=== PATIENT | female | born 1995 | race American Indian/Alaskan Native ===

== ENCOUNTER 2017-01-11 09:22 | Emergency (ER) | payer MEDICAID ==
[2017-01-11] MEDS ORDERED: D5NS 0.2% 1,000 ML IV SCH (10:00)
[2017-01-11 10:06] LABS: Basophils % (Auto) 0.7 % (0.0-1.8); Eosinophils % (Auto) 0.4 % (0.0-4.3); Hematocrit 24.4 % (30.3-42.9); Hemoglobin 8.6 gm/dl (10.1-14.3); Mean Corpuscular HGB Conc 35 % (30-34); Mean Corpuscular Hemoglobin 32 pg (28-32); Mean Corpuscular Volume 91 fl (79-97); Platelet Count 603 K/mm3 (140-440); Reticulocyte % 11.82 % (0.78-2.58); White Blood Count 12.8 K/mm3 (4.5-11.0)
[2017-01-11 10:07] LABS: Red Cell Distribution Width 23.6 % (13.2-15.2)
[2017-01-11] MEDS ORDERED: DILAUDID IV ONE ×3 (12:12→14:11)
[2017-01-11] MEDS ORDERED: BENADRYL IV ONE ×2 (12:13→13:10)
[2017-01-11 12:17] VITALS: BP 119/67
--- NOTE | 2017-01-11 12:23 | Emergency Department Report ---
HPI - General Chief Complaint: Sickle Cell Crisis Time Seen by Provider: 01/11/17 11:31 - HPI HPI: This is a 21 year-old female who presents to the emergency department from home with complaint of "sickle cell pain crisis." Patient says that she has pain in the upper chest and upper back has been going on since yesterday. She denies any fever, nausea, vomiting, shortness of breath or diaphoresis. She has been taking Percocet and her folic acid without any relief. Her primary care physician/investigator cash shortage is Dr. Abida Blackwell. No recent travel or sick contacts at home. ED Past Medical Hx - Past Medical History Previous Medical History?: Yes Hx Sickle Cell Disease: Yes - Surgical History Past Surgical History?: Yes Hx Cholecystectomy: Yes - Social History Smoking Status: Never Smoker Substance Use Type: Prescribed - Medications Home Medications: Home Medications Medication Instructions Recorded Confirmed Last Taken Type Folic Acid [Folvite] 1 mg PO QDAY 05/25/14 05/25/14 05/25/14 History Oxycodone HCl/Acetaminophen 10 mg PO DAILY 01/11/17 01/11/17 Unknown History [OxyCODONE-Acetaminophen 10-325] oxyCODONE /ACETAMINOPHEN [Percocet 1 tab PO Q6HR PRN #8 tablet 01/11/17 Unknown Rx 5/325] ED Review of Systems ROS: Stated complaint: SICKLE CELL PAIN Other details as noted in HPI Comment: All other systems reviewed and negative Constitutional: denies: chills, fever Eyes: denies: eye pain, eye discharge, vision change ENT: denies: ear pain, throat pain Respiratory: denies: cough, shortness of breath, wheezing Cardiovascular: chest pain. denies: as per HPI, palpitations Gastrointestinal: denies: abdominal pain, nausea, diarrhea Genitourinary: denies: urgency, dysuria, discharge Musculoskeletal: back pain. denies: arthralgia Skin: denies: rash, lesions Neurological: denies: headache, weakness, paresthesias Physical Exam - Physical Exam Vital Signs: Vital Signs 01/11/17 01/11/17 09:40 12:17 Temperature 98.5 F 98.4 F Pulse Rate 99 H 92 H Respiratory 16 18 Rate Blood Pressure 114/71 Blood Pressure 119/67 [Left] O2 Sat by Pulse 98 96 Oximetry Physical Exam: GENERAL: The patient is well-developed well-nourished. ENT: Normocephalic. Atraumatic. Patient has moist mucous membranes. EYES: Extraocular motions are intact. Pupils equal reactive to light bilaterally. No nystagmus. NECK: Supple. Trachea is mid line. CHEST/LUNGS: Clear to auscultation. There is no respiratory distress noted. There is some reproducible chest pain to palpation of the chest wall. HEART/CARDIOVASCULAR: Regular rhythm. Regular rate. There is no gallop rub or murmur. ABDOMEN: Abdomen is soft, nontender. Patient has normal bowel sounds. There is no abdominal distention. SKIN: Skin is warm and dry. NEURO: The patient is awake, alert, and oriented. The patient is cooperative. The patient has no sensory or motor deficits. The patient has normal speech. MUSCULOSKELETAL: There is no tenderness or deformity. There is no limitation range of motion. There is no evidence of acute injury. Muscle strength 5 out of 5 upper and lower extremity bilaterally. Cap refill less than 2 seconds. BACK: No midline thoracic or lumbar tenderness to palpation or deformity. There is some reproducible upper thoracic paraspinal tenderness to palpation. ED Course Vital Signs 01/11/17 01/11/17 09:40 12:17 Temperature 98.5 F 98.4 F Pulse Rate 99 H 92 H Respiratory 16 18 Rate Blood Pressure 114/71 Blood Pressure 119/67 [Left] O2 Sat by Pulse 98 96 Oximetry ED Medical Decision Making - Lab Data Result diagrams: 01/11/17 09:51 01/11/17 13:00 - Radiology Data Radiology results: image reviewed interpreted by me: Chest x-ray does not show any pleural effusion, obvious signs of pneumonia or any pneumothorax. No acute process noted. - Medical Decision Making 21-year-old female presents with what she believes is a sickle cell pain crisis. She has upper chest and upper back pain that is typical for her pain crisis. Her labs show some anemia but it is pretty consistent with previous visits. She has elevated reticulocyte count but it is improved compared to previous visit. Otherwise she does not have any significant abnormalities in her labs including a negative troponin. Chest x-ray does not show any acute process. The patient would not allow an EKG be done. She was given a few doses of pain medication. She was reevaluated multiple times of her multiple hours and is improved. Vital signs stable throughout her ED course. She appears low suspicion for chest crisis as there is no infiltrate seen on chest x -ray and she is afebrile. She is low on the heart score criteria. The patient has been discharged home to follow up with her PCP, Dr. Rich, and has been encouraged to return to the ER with any worsening of her symptoms or any acute distress. - Differential Diagnosis costochondritis, pneumonia, chest crisis, pain crisis Critical Care Time: No Critical care attestation.: If time is entered above; I have spent that time in minutes in the direct care of this critically ill patient, excluding procedure time. ED Disposition Clinical Impression: Sickle cell anemia with crisis Disposition: - TO HOME OR SELFCARE Is pt being admited?: No Condition: Stable Instructions: Sickle Cell Crisis (ED) Additional Instructions: Please follow-up with Dr. Rich tomorrow or Sunday at the latest. Return to the emergency Department with any worsening of her symptoms or any acute distress. Prescriptions: oxyCODONE /ACETAMINOPHEN [Percocet 5/325] 1 tab PO Q6HR PRN #8 tablet PRN Reason: Pain Referrals: ARCADIO RICH DO [Staff Physician] - [place] Time of Disposition: 15:14
--- NOTE | 2017-01-11 13:05 | XRay Report ---
ROUTINE CHEST, TWO VIEWS: HISTORY: chest pain. The trachea, heart, mediastinal contour, and lung ball are unremarkable. There is moderate dextroscoliosis in the thoracic spine with compensatory levoscoliosis in the lumbar spine. IMPRESSION: Scoliosis.
[2017-01-11 13:33] LABS: Anion Gap 20 mmol/L; Blood Urea Nitrogen 6 mg/dL (7-17); Carbon Dioxide 24 mmol/L (22-30); Glucose 82 mg/dL (65-100); Potassium 4.2 mmol/L (3.6-5.0); Sodium 143 mmol/L (137-145)
== END 2017-01-11 15:39 | disposition home or self-care (01) ==
LOC: ED 09:22
DX: D57.00 Hb-SS disease with crisis, unspecified (principal)
CPT/HCPCS: 36415; 71020; 80048; 84484; 85025; 85045; 96361; 96374; 96375; 96376; 99284; J1170; J1200

== ENCOUNTER 2017-04-02 10:26 | Emergency (ER) | payer MEDICAID ==
--- NOTE | 2017-04-02 12:52 | Emergency Department Report ---
Chief Complaint: Sickle Cell Crisis Stated Complaint: SICKLECELL CRISIS - HPI History of Present Illness: 21 year old female presents to ED with sickle cell pain and chest pain x2 days. patient states she usually takes oxycodone and folic acid. patient is stable, neurologiclly intact and in no acute distress. - ROS Review of Systems: see HPI - Exam Vital Signs: Vital Signs 04/02/17 12:04 Temperature 99.2 F Pulse Rate 100 H Respiratory 20 Rate Blood Pressure 123/70 O2 Sat by Pulse 99 Oximetry Physical Exam: General: no acute distress Cardiac: normal heart rate and rhythm Lungs: normal sounds bilaterally MSE screening note: Focused history and physical exam performed. Due to findings the following was ordered: Labs urine CXR EKG ED Medical Decision Making - Radiology Data Radiology results: pending - Medical Decision Making patient is stable, neurologically intact and in no acute distress. ED Disposition for MSE Condition: Stable
[2017-04-02] MEDS ORDERED: D5NS 0.2% 1,000 ML IV SCH (13:00)
[2017-04-02 13:19] LABS: Basophils % (Auto) 0.9 % (0.0-1.8); Eosinophils % (Auto) 0.9 % (0.0-4.3); Hemoglobin 9.1 gm/dl (10.1-14.3); Reticulocyte % 6.63 % (0.78-2.58); White Blood Count 6.6 K/mm3 (4.5-11.0)
[2017-04-02 13:29] LABS: Mean Corpuscular HGB Conc 36 % (30-34); Mean Corpuscular Hemoglobin 33 pg (28-32); Mean Corpuscular Volume 93 fl (79-97); Platelet Count 478 K/mm3 (140-440); Red Cell Distribution Width 19.6 % (13.2-15.2)
[2017-04-02 13:30] LABS: INR 1.18 (0.87-1.13)
[2017-04-02 13:31] LABS: Partial Thromboplastin Time 28.7 Sec. (24.2-36.6)
[2017-04-02 13:41] LABS: Anion Gap 18 mmol/L; BUN/Creatinine Ratio 20; Blood Urea Nitrogen 4 mg/dL (7-17); Calcium 8.8 mg/dL (8.4-10.2); Carbon Dioxide 22 mmol/L (22-30); Glucose 93 mg/dL (65-100); Potassium 3.4 mmol/L (3.6-5.0); Sodium 143 mmol/L (137-145)
[2017-04-02 13:42] LABS: Alanine Aminotransferase 18 units/L (7-56); Albumin 4.4 g/dL (3.9-5); Albumin/Globulin Ratio 1.3 %; Alkaline Phosphatase 67 units/L (35-129); Bilirubin,Direct 0.2 mg/dL (0-0.2); Bilirubin,Indirect 4.4 mg/dL; Total Protein 7.7 g/dL (6.3-8.2)
--- NOTE | 2017-04-02 14:20 | XRay Report ---
ROUTINE CHEST, TWO VIEWS: HISTORY: chest pain. The trachea, heart, mediastinal contour, lung ball and bony thorax are unremarkable. Scoliosis is noted. IMPRESSION: No acute cardiopulmonary process. Scoliosis.
[2017-04-02] MEDS ORDERED: NACL 0.9% 1000 ML 1,000 ML IV ONE (23:01)
[2017-04-02] MEDS ORDERED: BENADRYL IV ONE (23:02)
[2017-04-02] MEDS ORDERED: DILAUDID IV ONE (23:02)
--- NOTE | 2017-04-02 23:04 | Emergency Department Report ---
ED General Adult HPI - General Chief complaint: Sickle Cell Crisis Stated complaint: SICKLECELL CRISIS Time Seen by Provider: 04/02/17 21:54 Source: patient Mode of arrival: Ambulatory Limitations: No Limitations - History of Present Illness Initial comments: 21-year-old female known to have sickle cell disease presents with complaints of pain in both upper and lower limbs and chest pain since last night. Chest pain radiates to her back. No nausea no vomiting no diarrhea. Patient is on folic acid and oxycodone. She did not take her oxycodone on folic acids today. She has never had extreme transfusion before. She has had routine blood transfusions in the past. -: Gradual, Last night (progressively getting worse) Location: chest, upper extremity (both upper limbs), lower extremity (both lower limbs) Radiation: back (chest pain. radiates to her back) Severity scale (0 -10): 0 Quality: aching Consistency: intermittent Improves with: none Worsens with: none Associated Symptoms: chest pain, cough (dry cough), loss of appetite, malaise, shortness of breath, weakness. denies: diaphoresis, fever/chills, headaches, nausea/vomiting, rash, seizure, syncope Treatments Prior to Arrival: none - Related Data Home Medications Medication Instructions Recorded Confirmed Last Taken Folic Acid [Folvite] 1 mg PO QDAY 05/25/14 05/25/14 05/25/14 Oxycodone HCl/Acetaminophen 10 mg PO DAILY 01/11/17 01/11/17 Unknown [OxyCODONE-Acetaminophen 10-325] Previous Rx's Medication Instructions Recorded Last Taken Type oxyCODONE /ACETAMINOPHEN [Percocet 1 tab PO Q6HR PRN #8 tablet 01/11/17 Unknown Rx 5/325] Allergies Allergy/AdvReac Type Severity Reaction Status Date / Time No Known Allergies Allergy Verified 01/11/17 09:47 ED Review of Systems ROS: Stated complaint: SICKLECELL CRISIS Other details as noted in HPI Comment: All other systems reviewed and negative Constitutional: malaise, weakness. denies: chills, diaphoresis, fever Eyes: denies: eye pain, eye discharge, vision change ENT: denies: throat pain, dental pain, hearing loss, epistaxis Respiratory: see HPI, cough, shortness of breath. denies: SOB with exertion, SOB at rest, wheezing Cardiovascular: chest pain. denies: palpitations, dyspnea on exertion, edema, syncope, paroxysmal nocturnal dyspnea Endocrine: no symptoms reported Gastrointestinal: denies: abdominal pain, nausea, vomiting, diarrhea, constipation, hematemesis Genitourinary: denies: dysuria, frequency, hematuria, discharge Musculoskeletal: as per HPI, myalgia, other (pain in both upper and lower limbs) Skin: denies: lesions, change in color, change in hair/nails, pruritus Neurological: weakness. denies: headache, numbness, paresthesias ED Past Medical Hx - Past Medical History Previous Medical History?: Yes Hx Sickle Cell Disease: Yes - Surgical History Past Surgical History?: Yes Hx Cholecystectomy: Yes - Social History Smoking Status: Former Smoker Substance Use Type: Prescribed - Medications Home Medications: Home Medications Medication Instructions Recorded Confirmed Last Taken Type Folic Acid [Folvite] 1 mg PO QDAY 05/25/14 05/25/14 05/25/14 History Oxycodone HCl/Acetaminophen 10 mg PO DAILY 01/11/17 01/11/17 Unknown History [OxyCODONE-Acetaminophen 10-325] oxyCODONE /ACETAMINOPHEN [Percocet 1 tab PO Q6HR PRN #8 tablet 01/11/17 Unknown Rx 5/325] ED Physical Exam - General Limitations: No Limitations General appearance: alert, in distress ([id number] distress) - Head Head exam: Present: atraumatic, normocephalic - Eye Eye exam: Present: normal appearance, PERRL, EOMI, scleral icterus. Absent: conjunctival injection, nystagmus - ENT ENT exam: Present: normal exam, mucous membranes moist, TM's normal bilaterally - Neck Neck exam: Present: normal inspection, full ROM. Absent: tenderness, meningismus, lymphadenopathy - Respiratory Respiratory exam: Present: normal lung sounds bilaterally, chest wall tenderness. Absent: respiratory distress, wheezes, rales, rhonchi, accessory muscle use, decreased breath sounds, prolonged expiratory - Cardiovascular Cardiovascular Exam: Present: regular rate, normal rhythm, normal heart sounds. Absent: bradycardia, tachycardia, systolic murmur, diastolic murmur - GI/Abdominal GI/Abdominal exam: Present: soft, normal bowel sounds. Absent: distended, tenderness, guarding, rebound, hyperactive bowel sounds, hypoactive bowel sounds , organomegaly, mass - Rectal Rectal exam: Present: deferred - Extremities Exam Extremities exam: Present: normal inspection, full ROM, tenderness, normal capillary refill. Absent: pedal edema, joint swelling, calf tenderness - Back Exam Back exam: Present: normal inspection, full ROM. Absent: tenderness, CVA tenderness (R), CVA tenderness (L), muscle spasm, paraspinal tenderness - Neurological Exam Neurological exam: Present: alert, oriented X3, CN II-XII intact, motor sensory deficit ED Course Vital Signs 04/02/17 04/02/17 04/02/17 12:04 17:55 21:50 Temperature 99.2 F 98.6 F Pulse Rate 100 H 100 H Respiratory 20 16 18 Rate Blood Pressure 123/70 Blood Pressure 130/71 [Left] O2 Sat by Pulse 99 100 99 Oximetry 04/02/17 23:45 Temperature Pulse Rate 86 Respiratory Rate Blood Pressure Blood Pressure [Left] O2 Sat by Pulse Oximetry ED Medical Decision Making - Lab Data Result diagrams: 04/02/17 12:58 04/02/17 12:58 Lab Results 04/02/17 04/02/17 04/02/17 Range/Units 12:58 12:58 12:58 WBC 6.6 (4.5-11.0) K/mm3 RBC 2.80 L (3.65-5.03) M/mm3 Hgb 9.1 L (10.1-14.3) gm/dl Hct 26.0 L (30.3-42.9) % MCV 93 (79-97) fl MCH 33 H (28-32) pg MCHC 36 H (30-34) % RDW 19.6 H (13.2-15.2) % Plt Count 478 H (140-440) K/mm3 Lymph % (Auto) 36.4 H (13.4-35.0) % [place] % (Auto) 14.5 H (0.0-7.3) % Eos % (Auto) 0.9 (0.0-4.3) % Baso % (Auto) 0.9 (0.0-1.8) % Lymph # 2.4 (1.2-5.4) K/mm3 [place] # 1.0 H (0.0-0.8) K/mm3 Eos # 0.1 (0.0-0.4) K/mm3 Baso # 0.1 (0.0-0.1) K/mm3 Seg Neutrophils % 47.3 (40.0-70.0) % Seg Neutrophils # 3.1 (1.8-7.7) K/mm3 Percent Retic 6.63 H (0.78-2.58) % PT 15.6 H (12.2-14.9) Sec. INR 1.18 H (0.87-1.13) APTT 28.7 (24.2-36.6) Sec. Sodium 143 (137-145) mmol/L Potassium 3.4 L (3.6-5.0) mmol/L Chloride 106.0 (98-107) mmol/L Carbon Dioxide 22 (22-30) mmol/L Anion Gap 18 mmol/L BUN 4 L (7-17) mg/dL Creatinine < 0.2 L (0.7-1.2) mg/dL Estimated GFR > 60 ml/min BUN/Creatinine Ratio 20 % Glucose 93 (65-100) mg/dL Lactic Acid (0.7-2.0) mmol/L Calcium 8.8 (8.4-10.2) mg/dL Total Bilirubin (0.1-1.2) mg/dL Direct Bilirubin (0-0.2) mg/dL Indirect Bilirubin mg/dL AST (5-40) units/L ALT (7-56) units/L Alkaline Phosphatase (35-129) units/L Lactate Dehydrogenase (91-180) units/L Troponin T (0.00-0.029) ng/mL Total Protein (6.3-8.2) g/dL Albumin (3.9-5) g/dL Albumin/Globulin Ratio % HCG, Qual (Negative) 04/02/17 04/02/17 04/02/17 Range/Units 12:58 12:58 23:13 WBC (4.5-11.0) K/mm3 RBC (3.65-5.03) M/mm3 Hgb (10.1-14.3) gm/dl Hct (30.3-42.9) % MCV (79-97) fl MCH (28-32) pg MCHC (30-34) % RDW (13.2-15.2) % Plt Count (140-440) K/mm3 Lymph % (Auto) (13.4-35.0) % [place] % (Auto) (0.0-7.3) % Eos % (Auto) (0.0-4.3) % Baso % (Auto) (0.0-1.8) % Lymph # (1.2-5.4) K/mm3 [place] # (0.0-0.8) K/mm3 Eos # (0.0-0.4) K/mm3 Baso # (0.0-0.1) K/mm3 Seg Neutrophils % (40.0-70.0) % Seg Neutrophils # (1.8-7.7) K/mm3 Percent Retic (0.78-2.58) % PT (12.2-14.9) Sec. INR (0.87-1.13) APTT (24.2-36.6) Sec. Sodium (137-145) mmol/L Potassium (3.6-5.0) mmol/L Chloride (98-107) mmol/L Carbon Dioxide (22-30) mmol/L Anion Gap mmol/L BUN (7-17) mg/dL Creatinine (0.7-1.2) mg/dL Estimated GFR ml/min BUN/Creatinine Ratio % Glucose (65-100) mg/dL Lactic Acid 1.20 (0.7-2.0) mmol/L Calcium (8.4-10.2) mg/dL Total Bilirubin 4.60 H (0.1-1.2) mg/dL Direct Bilirubin 0.2 (0-0.2) mg/dL Indirect Bilirubin 4.4 mg/dL AST 25 (5-40) units/L ALT 18 (7-56) units/L Alkaline Phosphatase 67 (35-129) units/L Lactate Dehydrogenase (91-180) units/L Troponin T < 0.010 (0.00-0.029) ng/mL Total Protein 7.7 (6.3-8.2) g/dL Albumin 4.4 (3.9-5) g/dL Albumin/Globulin Ratio 1.3 % HCG, Qual Negative (Negative) 04/02/17 Range/Units 23:13 WBC (4.5-11.0) K/mm3 RBC (3.65-5.03) M/mm3 Hgb (10.1-14.3) gm/dl Hct (30.3-42.9) % MCV (79-97) fl MCH (28-32) pg MCHC (30-34) % RDW (13.2-15.2) % Plt Count (140-440) K/mm3 Lymph % (Auto) (13.4-35.0) % [place] % (Auto) (0.0-7.3) % Eos % (Auto) (0.0-4.3) % Baso % (Auto) (0.0-1.8) % Lymph # (1.2-5.4) K/mm3 [place] # (0.0-0.8) K/mm3 Eos # (0.0-0.4) K/mm3 Baso # (0.0-0.1) K/mm3 Seg Neutrophils % (40.0-70.0) % Seg Neutrophils # (1.8-7.7) K/mm3 Percent Retic (0.78-2.58) % PT (12.2-14.9) Sec. INR (0.87-1.13) APTT (24.2-36.6) Sec. Sodium (137-145) mmol/L Potassium (3.6-5.0) mmol/L Chloride (98-107) mmol/L Carbon Dioxide (22-30) mmol/L Anion Gap mmol/L BUN (7-17) mg/dL Creatinine (0.7-1.2) mg/dL Estimated GFR ml/min BUN/Creatinine Ratio % Glucose (65-100) mg/dL Lactic Acid (0.7-2.0) mmol/L Calcium (8.4-10.2) mg/dL Total Bilirubin (0.1-1.2) mg/dL Direct Bilirubin (0-0.2) mg/dL Indirect Bilirubin mg/dL AST (5-40) units/L ALT (7-56) units/L Alkaline Phosphatase (35-129) units/L Lactate Dehydrogenase 509 H (91-180) units/L Troponin T (0.00-0.029) ng/mL Total Protein (6.3-8.2) g/dL Albumin (3.9-5) g/dL Albumin/Globulin Ratio % HCG, Qual (Negative) - EKG Data -: EKG Interpreted by Me - EKG Data 04/03/17 02:06 Normal sinus rhythm, rate of 75 beats per minutes, normal axis T-wave inversion in lead 3, lead V2, 33, V4 and V5. Slightly prolonged QTc - Radiology Data Radiology results: report reviewed, image reviewed Critical Care Time: No Critical care attestation.: If time is entered above; I have spent that time in minutes in the direct care of this critically ill patient, excluding procedure time. ED Disposition Clinical Impression: Sickle-cell disease with vaso-occlusive pain Disposition: TO HOME OR SELFCARE Is pt being admited?: No Does the pt Need Aspirin: No Condition: Stable Instructions: Sickle Cell Crisis (ED) Additional Instructions: Follow up with your parking analyst in next 3 days. Return to ER if you problem gets worse Referrals: ARCADIO RICH DO [Primary Care Provider] - 3-5 Days Time of Disposition: 02:08
[2017-04-03] MEDS ORDERED: SUBLIMAZE IV ONE (00:53)
[2017-04-03 02:43] VITALS: BP 115/77
== END 2017-04-03 02:45 | disposition home or self-care (01) ==
LOC: ED 10:26
DX: D57.1 Sickle-cell disease without crisis (principal)
CPT/HCPCS: 36415; 71020; 80048; 80074; 82140; 83615; 84484; 84703; 85025; 85045; 85610; 85730; 93005; 93010; 96361; 96374; 96375; 99284; J1170; J1200; J3010; J7030

== ENCOUNTER 2017-11-14 13:53 | Inpatient (IN) | payer MEDICAID ==
[2017-11-14] MEDS ORDERED: SODIUM CHLORIDE FLUSH SYRINGE 10 ML IV PRN (13:59)
[2017-11-14 17:10] LABS: Basophils # (Auto) 0.1 K/mm3 (0.0-0.1); Basophils % (Auto) 0.6 % (0.0-1.8); Eosinophils % (Auto) 0.4 % (0.0-4.3); Hematocrit 21.6 % (30.3-42.9); Hemoglobin 7.5 gm/dl (10.1-14.3); Lymphocytes # (Auto) 2.4 K/mm3 (1.2-5.4); Mean Corpuscular HGB Conc 35 % (30-34); Mean Corpuscular Hemoglobin 34 pg (28-32); Mean Corpuscular Volume 97 fl (79-97); Monocytes # (Auto) 1.6 K/mm3 (0.0-0.8); Monocytes % (Auto) 14.1 % (0.0-7.3); Red Blood Count 2.24 M/mm3 (3.65-5.03); Red Cell Distribution Width 18.7 % (13.2-15.2)
[2017-11-14 17:11] LABS: Platelet Count 376 K/mm3 (140-440)
[2017-11-14 18:25] LABS: Alanine Aminotransferase 10 units/L (7-56); Albumin 4.2 g/dL (3.9-5); BUN/Creatinine Ratio 40; Blood Urea Nitrogen 8 mg/dL (7-17); Calcium 8.9 mg/dL (8.4-10.2); Hemolysis Index 34
[2017-11-14 18:26] LABS: Iron 140 ug/dL (37-170); Total Iron Binding Capacity 227 mcg/dL (250-450)
[2017-11-14] MEDS: HEPARIN SUB-Q SCH (20:31)
[2017-11-14] MEDS: DILAUDID IV PRN (20:32)
[2017-11-14] MEDS: BENADRYL IV PRN (20:34)
[2017-11-14] MEDS: D5NS 0.2% 1,000 ML IV SCH (20:39)
--- NOTE | 2017-11-14 21:32 | Consultation ---
History of Present Illness - Reason for Consult Consult date: 11/14/17 SCD/pain crisis/anemia. Requesting physician: RANDY ROBERTS - History of Present Illness Thank you for this consult, patient seen/sent from the office , for the reasons , of sxs management. Past History Social history: single, lives with family Medications and Allergies Allergies Allergy/AdvReac Type Severity Reaction Status Date / Time No Known Allergies Allergy Verified 01/11/17 09:47 Home Medications Medication Instructions Recorded Confirmed Last Taken Type Acetaminophen [Acetaminophen TAB] 650 mg PO Q4H PRN #30 tablet 06/20/17 Unknown Rx Folic Acid [Folvite] 1 mg PO QDAY #30 tablet 06/20/17 Unknown Rx Hydroxyurea [Hydrea] 500 mg PO DAILY #30 18 06/15/17 Unknown Rx Multivitamin Tab [Multiple Vitamin 1 each PO QDAY #30 tablet 06/20/17 Unknown Rx TAB (Theragran)] Oseltamivir [Tamiflu] 75 mg PO BID #1 day 06/20/17 Unknown Rx Sennosides Tab [Senokot] 17.2 mg PO QHS #30 tablet 06/20/17 Unknown Rx Venlafaxine [Effexor 37.5mg tab] 37.5 mg PO DAILY #30 day 06/20/17 06/15/17 Unknown Rx oxyCODONE /ACETAMINOPHEN [Percocet 1 tab PO Q6H PRN #20 tablet 06/20/17 Unknown Rx 5/325 mg] Active Meds: Active Medications Diphenhydramine HCl (Benadryl) 12.5 mg IV Q3H PRN PRN Reason: Itching Last Admin: 11/14/17 20:34 Dose: 12.5 mg Heparin Sodium (Porcine) (Heparin) 5,000 unit SUB-Q DAILY BONIFACIO Last Admin: 11/14/17 20:31 Dose: 5,000 unit Hydromorphone HCl (Dilaudid) 2 mg IV Q3H PRN PRN Reason: Pain, Moderate (4-6) Last Admin: 11/14/17 20:32 Dose: 2 mg Dextrose/Sodium Chloride (D5ns 0.2%) 1,000 mls @ 175 mls/hr IV DIRECT BONIFACIO Last Admin: 11/14/17 20:39 Dose: 175 mls/hr Sodium Chloride (Sodium Chloride Flush Syringe 10 Ml) 10 ml IV BID BONIFACIO Sodium Chloride (Sodium Chloride Flush Syringe 10 Ml) 10 ml IV PRN PRN PRN Reason: LINE FLUSH Review of Systems Constitutional: chronic pain Breasts: deferred Exam - Constitutional Vitals: Temp Pulse Resp BP Pulse Ox 98.5 F 79 20 111/47 98 11/14/17 16:32 11/14/17 16:32 11/14/17 16:32 11/14/17 16:32 11/14/17 16:32 General appearance: Present: mild distress, well-nourished - EENT Eyes: Present: PERRL ENT: hearing intact, clear oral mucosa - Neck Neck: Present: supple, normal ROM - Respiratory Respiratory effort: normal Respiratory: bilateral: diminished - Cardiovascular Heart Sounds: Present: S1 & S2. Absent: rub, click - Extremities Extremities: pulses symmetrical, No edema Peripheral Pulses: within normal limits - Abdominal General gastrointestinal: Present: soft, non-tender, non-distended, normal bowel sounds Female genitourinary: Present: deferred - Rectal Rectal Exam: deferred - Integumentary Integumentary: Present: clear, warm, dry - Musculoskeletal Musculoskeletal: gait normal, strength equal bilaterally - Psychiatric Psychiatric: appropriate mood/affect, intact judgment & insight - Neurologic Neurologic: CNII-XII intact, moves all extremities Results - Labs CBC & Chem 7: 11/14/17 16:03 11/14/17 16:03 Labs: Abnormal lab results 11/14/17 11/14/17 11/14/17 Range/Units 16:03 16:03 16:03 WBC 11.5 H (4.5-11.0) K/mm3 RBC 2.24 L (3.65-5.03) M/mm3 Hgb 7.5 L (10.1-14.3) gm/dl Hct 21.6 L (30.3-42.9) % MCH 34 H (28-32) pg MCHC 35 H (30-34) % RDW 18.7 H (13.2-15.2) % [place] % (Auto) 14.1 H (0.0-7.3) % [place] # 1.6 H (0.0-0.8) K/mm3 Percent Retic 8.47 H (0.78-2.58) % Potassium 3.5 L (3.6-5.0) mmol/L Carbon Dioxide 19 L (22-30) mmol/L Creatinine < 0.2 L (0.7-1.2) mg/dL TIBC (250-450) mcg/dL Ferritin (13.0-400.0) ng/mL Total Bilirubin 4.80 H (0.1-1.2) mg/dL Lactate Dehydrogenase 537 H (91-180) units/L 11/14/17 11/14/17 Range/Units 16:03 16:03 WBC (4.5-11.0) K/mm3 RBC (3.65-5.03) M/mm3 Hgb (10.1-14.3) gm/dl Hct (30.3-42.9) % MCH (28-32) pg MCHC (30-34) % RDW (13.2-15.2) % [place] % (Auto) (0.0-7.3) % [place] # (0.0-0.8) K/mm3 Percent Retic (0.78-2.58) % Potassium (3.6-5.0) mmol/L Carbon Dioxide (22-30) mmol/L Creatinine (0.7-1.2) mg/dL TIBC 227 L (250-450) mcg/dL Ferritin 630.4 H (13.0-400.0) ng/mL Total Bilirubin (0.1-1.2) mg/dL Lactate Dehydrogenase (91-180) units/L Assessment and Plan - Patient Problems (1) Sickle cell anemia with crisis Current Visit: No Status: Acute Plan to address problem: supportive care. (2) Sickle cell pain crisis Current Visit: No Status: Acute Plan to address problem: pain control. (3) Dehydration Current Visit: Yes Status: Acute Plan to address problem: hydration
[2017-11-14] MEDS: SODIUM CHLORIDE FLUSH SYRINGE 10 ML IV SCH (22:00)
[2017-11-14] MEDS ORDERED: PERCOCET 5/325 PO PRN (22:30)
[2017-11-14] MEDS ORDERED: TYLENOL PO PRN (22:30)
--- NOTE | 2017-11-14 22:50 | Event Note ---
Date: 11/14/17 See dictated history and physical in the report. Sickle cell crisis
--- NOTE | 2017-11-14 22:52 | History and Physical Report ---
CHIEF COMPLAINT: Pain all over for the last 2 days. HISTORY OF PRESENT ILLNESS: This 22-year-old female with history of sickle cell anemia and sickle cell crisis, comes in for pain all over, especially the lower back and the retrosternal chest. Pain is 10/10. No shortness of breath. No lightheadedness. No syncope. No recent travel. Pain is 10/10. No exacerbating or relieving factors. PAST MEDICAL HISTORY: Significant for sickle cell crisis and depression. CURRENT MEDICATIONS: Effexor 37.5 daily; chronic pain, oxycodone 5/325 q.6 p.r.n. PAST SURGICAL HISTORY: None. SOCIAL HISTORY: She does not smoke. No alcohol, no recreational drugs. FAMILY HISTORY: No hypertension, no diabetes. REVIEW OF SYSTEMS: Significant for chest pain and lower back pain and pain all over. Pain is 10 on a scale of 1-10. PHYSICAL EXAMINATION: GENERAL: Young female, cooperative during examination. VITAL SIGNS: Temperature is 98.2, pulse 79, respirations are 20, sats are 98%, blood pressure 111/47. HEENT: Pale mucous membranes. NECK: Supple, no lymphadenopathy, no thyromegaly. LUNGS: Clear to auscultation and percussion. Good air entry. CARDIOVASCULAR: S1, S2 heard. No gallop, no murmur, no rub. Apical impulse in the left fifth intercostal space and midclavicular line. ABDOMEN: Soft and benign. No hepatosplenomegaly. No guarding, no rigidity. Hernial orifices are normal. EXTREMITIES: Good pedal pulses. No pedal edema. CENTRAL NERVOUS SYSTEM: Alert and oriented x 4, nonfocal exam. SKIN: Normal. LABORATORY DATA: White count is 11,500, hemoglobin 7.5 and hematocrit is 21.6, platelet count is 376,000. Sodium is 139, potassium is 3.5, chloride is 102, BUN and creatinine is 8 and 0.2. Ferritin is 63.6 and 30.4. TIBC is 227. Iron is 140. Lactate dehydrogenase is 537. Total bilirubin is 4.8. ASSESSMENT AND PLAN: 1. Sickle cell crisis. Intravenous fluids and pain management. Dilaudid 2 mg every 3 as needed. 2. Hemoptysis secondary to sickle cell crisis. LDH is high. Transfuse as necessary. 3. For pain management, intravenous Dilaudid 2 mg every 3 as needed and continue her home medications in the form of oxycodone 5/325 every 6 as needed. 4. Deep venous thrombosis prophylaxis, Lovenox 40 mg subcutaneous daily. [facility]# [id number] RUBY/NTS
[2017-11-15] MEDS: DILAUDID IV PRN ×5 (00:19→18:00)
[2017-11-15] MEDS: BENADRYL IV PRN ×4 (00:20→16:30)
[2017-11-15] MEDS: D5NS 0.2% 1,000 ML IV SCH ×2 (00:46→06:11)
[2017-11-15 07:16] LABS: Basophils % (Auto) 0.5 % (0.0-1.8); Eosinophils # (Auto) 0.1 K/mm3 (0.0-0.4); Eosinophils % (Auto) 1.1 % (0.0-4.3); Hematocrit 21.8 % (30.3-42.9); Hemoglobin 7.7 gm/dl (10.1-14.3); Lymphocytes % (Auto) 24.4 % (13.4-35.0); Mean Corpuscular HGB Conc 35 % (30-34); Mean Corpuscular Hemoglobin 34 pg (28-32); Mean Corpuscular Volume 97 fl (79-97); Monocytes # (Auto) 1.3 K/mm3 (0.0-0.8); Monocytes % (Auto) 15.6 % (0.0-7.3); Platelet Count 450 K/mm3 (140-440); Red Blood Count 2.25 M/mm3 (3.65-5.03); Red Cell Distribution Width 18.8 % (13.2-15.2)
[2017-11-15 07:38] LABS: BUN/Creatinine Ratio 20; Blood Urea Nitrogen 4 mg/dL (7-17); Calcium 8.4 mg/dL (8.4-10.2); Hemolysis Index 66
[2017-11-15] MEDS ORDERED: HYDREA PO SCH (10:00)
[2017-11-15] MEDS ORDERED: THERAGRAN Tab PO SCH (10:00)
[2017-11-15] MEDS: SODIUM CHLORIDE FLUSH SYRINGE 10 ML IV SCH (10:00)
[2017-11-15] MEDS ORDERED: FOLVITE PO SCH (10:00)
[2017-11-15] MEDS ORDERED: EFFEXOR PO SCH (10:00)
[2017-11-15] MEDS: HEPARIN SUB-Q SCH (10:00)
--- NOTE | 2017-11-15 17:13 | Discharge Summary ---
Providers - Providers Date of Admission: 11/14/17 15:20 Date of discharge: 11/15/17 Attending physician: RAJAT MAR 11/14/17 13:59 Consult to Physician [CONS] Routine Comment: Consulting Provider: ARCADIO RICH Physician Instructions: Reason For Exam: SICKLE CELL ANEMIA WITH CRISIS Primary care physician: ARCADIO RICH Hospitalization Condition: Good Hospital course: A shift present with her usual sickle cell crisis from her home oncologist Dr. ferguson. Patient defervesced well with supportive care IV fluids aggressive pain control oxygen any. Antibiotics. Patient was stable for discharge Disposition: DC- TO HOME OR SELFCARE Core Measure Documentation - Palliative Care Palliative Care/ Comfort Measures: Not Applicable - Core Measures Any of the following diagnoses?: none Exam - Constitutional Vitals: Temp Pulse Resp BP Pulse Ox 98.4 F 92 H 19 101/52 98 11/15/17 07:38 11/15/17 07:40 11/15/17 07:38 11/15/17 07:38 11/15/17 07:40 General appearance: Present: no acute distress, well-nourished - EENT Eyes: Present: PERRL ENT: hearing intact, clear oral mucosa - Neck Neck: Present: supple, normal ROM - Respiratory Respiratory effort: normal Respiratory: bilateral: CTA - Cardiovascular Heart Sounds: Present: S1 & S2. Absent: rub, click - Extremities Extremities: pulses symmetrical, No edema Peripheral Pulses: within normal limits - Abdominal General gastrointestinal: Present: soft, non-tender, non-distended, normal bowel sounds Female genitourinary: Present: normal - Integumentary Integumentary: Present: clear, warm, dry - Musculoskeletal Musculoskeletal: gait normal, strength equal bilaterally - Psychiatric Psychiatric: appropriate mood/affect, intact judgment & insight - Neurologic Neurologic: CNII-XII intact, moves all extremities Plan Activity: advance as tolerated Weight Bearing Status: Full Weight Bearing Diet: regular Wound: open to air Follow up with: ARCADIO RICH DO [Primary Care Provider] - 7 Days Prescriptions: Hydroxyurea [Hydrea] 500 mg PO DAILY #30 capsule oxyCODONE /ACETAMINOPHEN [Percocet 5/325 mg] 1 tab PO Q6H PRN #60 tablet PRN Reason: Pain , Severe (7-10) Sennosides Tab [Senokot] 17.2 mg PO QHS #30 tablet
[2017-11-15 17:56] VITALS: BP 120/63
[2017-11-15] MEDS ORDERED: SENOKOT PO SCH (22:00)
[2017-11-15] MEDS ORDERED: LOVENOX SUB-Q SCH (22:00)
== END 2017-11-15 18:00 | disposition home or self-care (01) | DRG 812 ==
LOC: 3A 13:53 → UNDOADMIN 13:53 → 3A 15:20
PROVIDERS: ADMIT Internal Medicine; ATTEND Internal Medicine
DX: D57.00 Hb-SS disease with crisis, unspecified (principal); F32.9 Major depressive disorder, single episode, unspecified; R04.2 Hemoptysis; E86.0 Dehydration
CPT/HCPCS: 36415; 80048; 80053; 82728; 83550; 83615; 84443; 85025; 85045; J1170; J1200; J1644

== ENCOUNTER 2017-11-20 06:19 | Emergency (ER) | payer MEDICAID ==
[2017-11-20 06:24] VITALS: BP 122/62
[2017-11-20] MEDS ORDERED: D5NS 0.2% 1,000 ML IV SCH (08:00)
[2017-11-20 08:31] LABS: Hematocrit 21.6 % (30.3-42.9); Hemoglobin 7.7 gm/dl (10.1-14.3); Mean Corpuscular HGB Conc 36 % (30-34); Mean Corpuscular Hemoglobin 36 pg (28-32); Mean Corpuscular Volume 100 fl (79-97); Platelet Count 529 K/mm3 (140-440); Red Blood Count 2.16 M/mm3 (3.65-5.03); Red Cell Distribution Width 23.5 % (13.2-15.2)
[2017-11-20 11:16] LABS: Basophils % (Manual) 0 % (0.0-1.8); Total Cells Counted 100
[2017-11-20 11:17] LABS: Anisocytosis 2+; Poikilocytosis 2+
[2017-11-20 11:18] LABS: Ovalocytes 1+; Sickle Cells 1+
[2017-11-20 11:19] LABS: Target Cells Few
[2017-11-20 11:20] LABS: Platelet Estimate Cons
== END 2017-11-20 19:56 | disposition left against medical advice (07) ==
LOC: ED 06:19
DX: D57.00 Hb-SS disease with crisis, unspecified (principal); M54.5 Low back pain; Z53.21 Procedure and treatment not carried out due to patient leaving prior to being seen by health care provider
CPT/HCPCS: 36415; 84703; 85007; 85025; 85045

== ENCOUNTER 2018-01-01 14:34 | Inpatient (IN) | payer MEDICAID ==
--- NOTE | 2018-01-01 16:55 | History and Physical Report ---
History of Present Illness Date of examination: 01/01/18 Date of admission: 01/01/18 15:38 Chief complaint: Chief complaint: Pain all over for 3 days History of present illness: History of present illness: 22-year-old black female with history of sickle cell anemia and crisis comes in for severe pain all over for the last 2-3 days. Pain is about 10 on a scale of 1-10. Pain is mostly retrosternal bilateral hips and lower back. Pain is sharp in nature. No shortness of breath. Patient feels dehydrated. Also patient says that her test was positive couple days back. No nausea no vomiting. Past History Past Medical History: other (sickle cell anemia and crisis) Past Surgical History: No surgical history Social history: no significant social history, lives with family, full code Family history: hypertension Medications and Allergies Allergies Allergy/AdvReac Type Severity Reaction Status Date / Time No Known Allergies Allergy Verified 01/11/17 09:47 Home Medications Medication Instructions Recorded Confirmed Last Taken Type Acetaminophen [Acetaminophen TAB] 650 mg PO Q4H PRN #30 tablet 06/20/1711/13/17 Rx Folic Acid [Folvite] 1 mg PO QDAY #30 tablet 06/20/17 11/15/17 11/13/17 Rx Multivitamin Tab [Multiple Vitamin 1 each PO QDAY #30 tablet 06/20/17 11/15/17 11/13/17 Rx TAB (Theragran)] Venlafaxine [Effexor 37.5mg tab] 37.5 mg PO DAILY #30 day 06/20/17 11/15/17 Rx Hydroxyurea [Hydrea] 500 mg PO DAILY #30 capsule 11/15/17 Unknown Rx Sennosides Tab [Senokot] 17.2 mg PO QHS #30 tablet 11/15/17 Unknown Rx oxyCODONE /ACETAMINOPHEN [Percocet 1 tab PO Q6H PRN #60 tablet 11/15/17 Unknown Rx 5/325 mg] Active Meds: Active Medications Heparin Sodium (Porcine) (Heparin) 5,000 unit SUB-Q Q12HR BONIFACIO Dextrose/Sodium Chloride (D5ns 0.2%) 1,000 mls @ 150 mls/hr IV DIRECT BONIFACIO Review of Systems All systems: negative Constitutional: no weight loss, no weight gain, no fever, no chills Ears, nose, mouth and throat: no hoarseness, no sore throat Breasts: deferred Cardiovascular: chest pain, no orthopnea, no palpitations, no shortness of breath Respiratory: no cough, no cough with sputum, no excessive sputum, no hemoptysis , no shortness of breath, no dyspnea on exertion Gastrointestinal: no abdominal pain, no nausea, no vomiting, no diarrhea Genitourinary Female: Rectal: no pain Musculoskeletal: neck pain, other (low back pain), no neck stiffness Integumentary: no rash, no pruritis, no redness, no sores, no wounds Neurological: no seizures, no syncope Psychiatric: no anxiety, no memory loss, no change in sleep habits, no sleep disturbances Endocrine: no cold intolerance, no heat intolerance Hematologic/Lymphatic: no easy bruising, no easy bleeding Allergic/Immunologic: no urticaria, no allergic rhinitis, no wheezing Exam - Constitutional Vitals: Temp Pulse Resp BP Pulse Ox 98.8 F 88 19 117/59 96 01/01/18 16:17 01/01/18 16:17 01/01/18 16:17 01/01/18 16:17 01/01/18 16:17 General appearance: Present: mild distress, well-nourished - EENT Eyes: Present: PERRL ENT: hearing intact, clear oral mucosa - Neck Neck: Present: supple, normal ROM - Respiratory Respiratory effort: normal Respiratory: bilateral: CTA - Cardiovascular Heart rate: 76 Rhythm: regular Heart Sounds: Present: S1 & S2. Absent: rub, click - Extremities Extremities: no ischemia, pulses intact, pulses symmetrical, No edema Peripheral Pulses: within normal limits - Abdominal General gastrointestinal: Present: soft, non-tender, non-distended, normal bowel sounds Female genitourinary: Present: normal - Integumentary Integumentary: Present: clear, warm, dry - Musculoskeletal Musculoskeletal: gait normal, strength equal bilaterally - Psychiatric Psychiatric: appropriate mood/affect, intact judgment & insight - Neurologic Neurologic: CNII-XII intact, moves all extremities - Allied Health Allied health notes reviewed: nursing, case management Assessment and Plan Advance Directives: Yes (full code) VTE prophylaxis?: Chemical Plan of care discussed with patient/family: Yes - Patient Problems (1) Sickle cell pain crisis Current Visit: No Status: Acute Plan to address problem: IV fluids Patient is Skeptical about Dilaudid in Deferred to , discussed with Dr. Dunn Labs are still pending Patient is a direct admit (2) Positive urine test Current Visit: Yes Status: Acute Plan to address problem: MOTOR CARRIER INSPECTOR consult (3) Dehydration Current Visit: No Status: Acute Plan to address problem: IV fluids for now (4) DVT prophylaxis Current Visit: Yes Status: Acute Plan to address problem: On SCDs
[2018-01-01] MEDS ORDERED: BENADRYL IV PRN (17:02)
[2018-01-01] MEDS ORDERED: DILAUDID IV PRN (17:06)
[2018-01-01] MEDS ORDERED: D5NS 0.2% 1,000 ML IV SCH (18:00)
[2018-01-01 19:06] LABS: HCG Qualitative,Urine Positive (Negative)
--- NOTE | 2018-01-01 19:34 | Consultation ---
History of Present Illness - Reason for Consult Consult date: 01/01/18 anemia/pain crisis. Requesting physician: RANDY ROBERTS - History of Present Illness Thank you for this consult, patient seen/examined, records reviewed, case d/w patient. patient sent from the office for sxs management.urine beta hcg positive , will follow up with blood test. Past History Past Medical History: anemia Social history: single Medications and Allergies Allergies Allergy/AdvReac Type Severity Reaction Status Date / Time No Known Allergies Allergy Verified 01/11/17 09:47 Home Medications Medication Instructions Recorded Confirmed Last Taken Type Acetaminophen [Acetaminophen TAB] 650 mg PO Q4H PRN #30 tablet 06/20/1711/13/17 Rx Folic Acid [Folvite] 1 mg PO QDAY #30 tablet 06/20/17 11/15/17 11/13/17 Rx Multivitamin Tab [Multiple Vitamin 1 each PO QDAY #30 tablet 06/20/17 11/15/17 11/13/17 Rx TAB (Theragran)] Venlafaxine [Effexor 37.5mg tab] 37.5 mg PO DAILY #30 day 06/20/17 11/15/17 Rx Hydroxyurea [Hydrea] 500 mg PO DAILY #30 capsule 11/15/17 Unknown Rx Sennosides Tab [Senokot] 17.2 mg PO QHS #30 tablet 11/15/17 Unknown Rx oxyCODONE /ACETAMINOPHEN [Percocet 1 tab PO Q6H PRN #60 tablet 11/15/17 Unknown Rx 5/325 mg] Active Meds: Active Medications Diphenhydramine HCl (Benadryl) 12.5 mg IV Q4H PRN PRN Reason: Itching Heparin Sodium (Porcine) (Heparin) 5,000 unit SUB-Q Q12HR BONIFACIO Hydromorphone HCl (Dilaudid) 2 mg IV Q3H PRN PRN Reason: Pain, Moderate (4-6) Stop: 01/02/18 16:57 Hydromorphone HCl (Dilaudid) 2 mg IV Q4H PRN PRN Reason: Pain, Moderate (4-6) Dextrose/Sodium Chloride (D5ns 0.2%) 1,000 mls @ 150 mls/hr IV DIRECT BONIFACIO Review of Systems Constitutional: chronic pain Breasts: deferred Exam - Constitutional Vitals: Temp Pulse Resp BP Pulse Ox 98.8 F 88 19 117/59 96 01/01/18 16:17 01/01/18 16:17 01/01/18 16:17 01/01/18 16:17 01/01/18 16:17 General appearance: Present: mild distress, well-nourished - EENT Eyes: Present: PERRL ENT: hearing intact, clear oral mucosa - Neck Neck: Present: supple, normal ROM - Respiratory Respiratory effort: normal Respiratory: bilateral: CTA - Cardiovascular Heart Sounds: Present: S1 & S2. Absent: rub, click - Extremities Extremities: pulses symmetrical, No edema Peripheral Pulses: within normal limits - Abdominal General gastrointestinal: Present: soft, non-tender, non-distended, normal bowel sounds Female genitourinary: Present: deferred - Rectal Rectal Exam: deferred - Integumentary Integumentary: Present: clear, warm, dry - Musculoskeletal Musculoskeletal: gait normal, strength equal bilaterally - Psychiatric Psychiatric: appropriate mood/affect, intact judgment & insight - Neurologic Neurologic: CNII-XII intact, moves all extremities Results - Labs Labs: Abnormal lab results 01/01/18 Range/Units 18:45 Urine HCG, Qual Positive A (Negative) Assessment and Plan - Patient Problems (1) Dehydration Current Visit: No Status: Acute Plan to address problem: hydration. (2) Sickle cell anemia with crisis Current Visit: No Status: Acute Plan to address problem: see orders. (3) Positive urine test Current Visit: Yes Status: Acute Plan to address problem: patient knew few days ago but failed to mention it.,and she had been on hydrea all along.Will stop hydroxyurea charmaine.
[2018-01-01] MEDS: DILAUDID IV PRN (21:21)
[2018-01-01] MEDS: BENADRYL IV PRN (21:24)
[2018-01-01] MEDS: HEPARIN SUB-Q SCH (21:30)
[2018-01-01] MEDS ORDERED: TYLENOL PO PRN (21:47)
[2018-01-01] MEDS ORDERED: SODIUM CHLORIDE FLUSH SYRINGE 10 ML IV PRN (21:47)
[2018-01-01] MEDS ORDERED: ZOFRAN IV PRN (21:47)
[2018-01-01 22:15] LABS: Hematocrit 20.5 % (30.3-42.9); Hemoglobin 7.4 gm/dl (10.1-14.3); Mean Corpuscular HGB Conc 36 % (30-34); Mean Corpuscular Hemoglobin 35 pg (28-32); Mean Corpuscular Volume 96 fl (79-97); Platelet Count 397 K/mm3 (140-440); Red Blood Count 2.13 M/mm3 (3.65-5.03)
[2018-01-01 22:29] LABS: Alanine Aminotransferase 14 units/L (7-56); Albumin 3.5 g/dL (3.9-5); BUN/Creatinine Ratio 25; Blood Urea Nitrogen 5 mg/dL (7-17); Calcium 8.4 mg/dL (8.4-10.2); Hemolysis Index 13
[2018-01-01 22:31] LABS: Red Cell Distribution Width 22.9 % (13.2-15.2)
[2018-01-01 23:04] LABS: Basophils % (Manual) 0 % (0.0-1.8); Total Cells Counted 100
[2018-01-01 23:05] LABS: Anisocytosis 1+; Large Platelets 1+; Target Cells Few
[2018-01-01 23:06] LABS: Platelet Estimate Consistent w Auto; Sickle Cells 1+
[2018-01-01] MEDS: SODIUM CHLORIDE FLUSH SYRINGE 10 ML IV SCH (23:08)
[2018-01-01] MEDS: D5NS 1,000 ML IV SCH (23:14)
[2018-01-02 01:01] LABS: % Iron Saturation 97.18 %
[2018-01-02] MEDS: DILAUDID IV PRN ×5 (04:32→22:11)
[2018-01-02] MEDS: D5NS 1,000 ML IV SCH ×2 (07:17→17:18)
[2018-01-02] MEDS: BENADRYL IV PRN ×4 (08:44→22:12)
[2018-01-02] MEDS: HEPARIN SUB-Q SCH ×2 (10:18→22:13)
--- NOTE | 2018-01-02 11:31 | Progress Note ---
Assessment and Plan Assessment and plan: Sickle cell vaso-occlusive crisis. Continue IV fluid hydration. Continue pain control medications per WINDOWS APPLICATION ADMINISTRATOR and hematology recommendations. Positive urine test. MARKET GARDEN WORKER consultation pending. Dehydration. Continue IV fluid hydration. DVT prophylaxis. Continue SCDs. History Interval history: No new issues overnight. Hospitalist Physical - Constitutional Vitals: Temp Pulse Resp BP Pulse Ox 98.3 F 79 14 110/51 94 01/02/18 06:24 01/02/18 06:24 01/02/18 06:24 01/02/18 06:24 01/02/18 06:24 General appearance: Present: mild distress, well-nourished - EENT Eyes: Present: PERRL, EOM intact ENT: hearing intact, clear oral mucosa, dentition normal - Neck Neck: Present: supple, normal ROM - Respiratory Respiratory effort: normal Respiratory: bilateral: CTA - Cardiovascular Rhythm: regular Heart Sounds: Present: S1 & S2. Absent: gallop, rub - Extremities Extremities: no ischemia, No edema, Full ROM - Abdominal General gastrointestinal: soft, non-tender, non-distended, normal bowel sounds - Integumentary Integumentary: Present: clear, warm, dry - Neurologic Neurologic: CNII-XII intact, moves all extremities Results - Labs CBC & Chem 7: 01/01/18 21:54 01/01/18 21:54 Labs: Laboratory Last Values WBC 14.4 K/mm3 (4.5-11.0) H 01/01/18 21:54 RBC 2.13 M/mm3 (3.65-5.03) L 01/01/18 21:54 Hgb 7.4 gm/dl (10.1-14.3) L 01/01/18 21:54 Hct 20.5 % (30.3-42.9) L 01/01/18 21:54 MCV 96 fl (79-97) 01/01/18 21:54 MCH 35 pg (28-32) H 01/01/18 21:54 MCHC 36 % (30-34) H 01/01/18 21:54 RDW 22.9 % (13.2-15.2) H 01/01/18 21:54 Plt Count 397 K/mm3 (140-440) 01/01/18 21:54 Add Manual Diff Complete 01/01/18 21:54 Total Counted 100 01/01/18 21:54 Seg Neuts % (Manual) 73.0 % (40.0-70.0) H 01/01/18 21:54 Band Neutrophils % 0 % 01/01/18 21:54 Lymphocytes % (Manual) 15.0 % (13.4-35.0) 01/01/18 21:54 Reactive Lymphs % (Man) 0 % 01/01/18 21:54 Monocytes % (Manual) 11.0 % (0.0-7.3) H 01/01/18 21:54 Eosinophils % (Manual) 1.0 % (0.0-4.3) 01/01/18 21:54 Basophils % (Manual) 0 % (0.0-1.8) 01/01/18 21:54 Metamyelocytes % 0 % 01/01/18 21:54 Myelocytes % 0 % 01/01/18 21:54 Promyelocytes % 0 % 01/01/18 21:54 Blast Cells % 0 % 01/01/18 21:54 Nucleated RBC % 2.0 % (0.0-0.9) H 01/01/18 21:54 Seg Neutrophils # Man 10.5 K/mm3 (1.8-7.7) H 01/01/18 21:54 Band Neutrophils # 0.0 K/mm3 01/01/18 21:54 Lymphocytes # (Manual) 2.2 K/mm3 (1.2-5.4) 01/01/18 21:54 Abs React Lymphs (Man) 0.0 K/mm3 01/01/18 21:54 Monocytes # (Manual) 1.6 K/mm3 (0.0-0.8) H 01/01/18 21:54 Eosinophils # (Manual) 0.1 K/mm3 (0.0-0.4) 01/01/18 21:54 Basophils # (Manual) 0.0 K/mm3 (0.0-0.1) 01/01/18 21:54 Metamyelocytes # 0.0 K/mm3 01/01/18 21:54 Myelocytes # 0.0 K/mm3 01/01/18 21:54 Promyelocytes # 0.0 K/mm3 01/01/18 21:54 Blast Cells # 0.0 K/mm3 01/01/18 21:54 WBC Morphology Not Reportable 01/01/18 21:54 Hypersegmented Neuts Not Reportable 01/01/18 21:54 Hyposegmented Neuts Not Reportable 01/01/18 21:54 Hypogranular Neuts Not Reportable 01/01/18 21:54 Smudge Cells Not Reportable 01/01/18 21:54 Toxic Granulation Not Reportable 01/01/18 21:54 Toxic Vacuolation Not Reportable 01/01/18 21:54 Dohle Bodies Not Reportable 01/01/18 21:54 Pelger-Huet Anomaly Not Reportable 01/01/18 21:54 Nando Rods Not Reportable 01/01/18 21:54 Platelet Estimate Consistent w auto 01/01/18 21:54 Clumped Platelets Not Reportable 01/01/18 21:54 Plt Clumps, EDTA Not Reportable 01/01/18 21:54 Large Platelets 1+ 01/01/18 21:54 Giant Platelets Not Reportable 01/01/18 21:54 Platelet Satelliting Not Reportable 01/01/18 21:54 Plt Morphology Comment Not Reportable 01/01/18 21:54 RBC Morphology Not Reportable 01/01/18 21:54 Dimorphic RBCs Not Reportable 01/01/18 21:54 Polychromasia Not Reportable 01/01/18 21:54 Hypochromasia Not Reportable 01/01/18 21:54 Poikilocytosis Not Reportable 01/01/18 21:54 Anisocytosis 1+ 01/01/18 21:54 Microcytosis Not Reportable 01/01/18 21:54 Macrocytosis Not Reportable 01/01/18 21:54 Spherocytes Not Reportable 01/01/18 21:54 Pappenheimer Bodies Not Reportable 01/01/18 21:54 Sickle Cells 1+ 01/01/18 21:54 Target Cells Few 01/01/18 21:54 Tear Drop Cells Not Reportable 01/01/18 21:54 Ovalocytes Not Reportable 01/01/18 21:54 Helmet Cells Not Reportable 01/01/18 21:54 [place] Bodies Not Reportable 01/01/18 21:54 [place] Rings Not Reportable 01/01/18 21:54 Kelly Cells Not Reportable 01/01/18 21:54 Bite Cells Not Reportable 01/01/18 21:54 Crenated Cell Not Reportable 01/01/18 21:54 Elliptocytes 1+ 01/01/18 21:54 Acanthocytes (Spur) Not Reportable 01/01/18 21:54 Rouleaux Not Reportable 01/01/18 21:54 Hemoglobin C Crystals Not Reportable 01/01/18 21:54 Schistocytes Not Reportable 01/01/18 21:54 Malaria parasites Not Reportable 01/01/18 21:54 Percent Retic 13.17 % (0.78-2.58) H 01/01/18 21:54 Moose Bodies Not Reportable 01/01/18 21:54 Hem Pathologist Commnt No 01/01/18 21:54 Sodium 139 mmol/L (137-145) 01/01/18 21:54 Potassium 3.3 mmol/L (3.6-5.0) L 01/01/18 21:54 Chloride 104.1 mmol/L (98-107) 01/01/18 21:54 Carbon Dioxide 24 mmol/L (22-30) 01/01/18 21:54 Anion Gap 14 mmol/L 01/01/18 21:54 BUN 5 mg/dL (7-17) L 01/01/18 21:54 Creatinine 0.2 mg/dL (0.7-1.2) L 01/01/18 21:54 Estimated GFR > 60 ml/min 01/01/18 21:54 BUN/Creatinine Ratio 25 % 01/01/18 21:54 Glucose 84 mg/dL (65-100) 01/01/18 21:54 Calcium 8.4 mg/dL (8.4-10.2) 01/01/18 21:54 Iron 207 ug/dL (37-170) H 01/01/18 00:25 TIBC 213 mcg/dL (250-450) L 01/01/18 00:25 % Saturation 97.18 % 01/01/18 00:25 Transferrin 170 mg/dl (192-382) L 01/01/18 00:25 Total Bilirubin 3.80 mg/dL (0.1-1.2) H 01/01/18 21:54 AST 33 units/L (5-40) 01/01/18 21:54 ALT 14 units/L (7-56) 01/01/18 21:54 Alkaline Phosphatase 58 units/L (35-129) 01/01/18 21:54 Lactate Dehydrogenase 418 units/L (91-180) H 01/01/18 00:25 Total Protein 6.0 g/dL (6.3-8.2) L 01/01/18 21:54 Albumin 3.5 g/dL (3.9-5) L 01/01/18 21:54 Albumin/Globulin Ratio 1.4 % 01/01/18 21:54 HCG, Quant 70289 mIU/mL (0-4) H 01/01/18 20:04 Urine HCG, Qual Positive (Negative) A 01/01/18 18:45
--- NOTE | 2018-01-02 12:38 | Ultrasound Report ---
ULTRASOUND OB LESS THAN 14 WEEKS HISTORY: Viability. COMPARISON: None. TECHNIQUE: Transabdominal and transvaginal ultrasound with color doppler interrogation. FINDINGS: Uterus: The uterus measures 11 x 10 x 11 cm. No uterine fibroids are detected. The cervix is obscured. Endometrium: An intrauterine gestational sac containing a fetus is identified. Heart rate measures 159 beats per minute. Estimated age on ultrasound is 13 weeks 4 days. No acute abnormality. Right ovary: 3.7 x 1.8 x 3.4 cm. No focal abnormality. Left ovary: 4.2 x 3.0 x 3.7 cm. No focal abnormality. No pelvic fluid or mass is identified. Normal color doppler interrogation. IMPRESSION: Viable single intrauterine as described. No acute abnormality is detected.
--- NOTE | 2018-01-02 12:59 | Consultation ---
History of Present Illness Consult date: 01/02/18 Requesting physician: RANDY ROBERTS Reason for consult: other ( ) History of present illness: Pt is a 22 year old female LMP "early September" 2017 who was admitted to the hospital for management of a sickle cell crisis. She recently discovered that she is . She has not yet established care due to insurance issues. She denies pelvic pain or vaginal bleeding. She typically takes Ibuprofen, Hydroxyurea, and Percocet 10 when she is not for her sickle cell pain. Her hydroxyurea has been discontinued since knowledge of her . She reports that typically Dilaudid ameliorates her pain during her pain crises. Past History Past Medical History: hematologic disorders (Sickle Cell Disease ) Past Surgical History: cholecystectomy Social history: no significant social history - Obstetrical History Expected Date of Delivery: 07/06/18 Actual Gestation: 13 Week(s) 4 Day(s) : 2 Para: 1 Hx # Term Pregnancies: 1 Number of Pregnancies: 0 Spontaneous Abortions: 0 Induced : 0 Number of Living Children: 1 Medications and Allergies Allergies Allergy/AdvReac Type Severity Reaction Status Date / Time No Known Allergies Allergy Verified 01/11/17 09:47 Home Medications Medication Instructions Recorded Confirmed Last Taken Type Acetaminophen [Acetaminophen TAB] 650 mg PO Q4H PRN #30 tablet 06/20/1711/13/17 Rx Folic Acid [Folvite] 1 mg PO QDAY #30 tablet 06/20/17 11/15/17 11/13/17 Rx Multivitamin Tab [Multiple Vitamin 1 each PO QDAY #30 tablet 06/20/17 11/15/17 11/13/17 Rx TAB (Theragran)] Venlafaxine [Effexor 37.5mg tab] 37.5 mg PO DAILY #30 day 06/20/17 11/15/17 Rx Hydroxyurea [Hydrea] 500 mg PO DAILY #30 capsule 11/15/17 Unknown Rx Sennosides Tab [Senokot] 17.2 mg PO QHS #30 tablet 11/15/17 Unknown Rx oxyCODONE /ACETAMINOPHEN [Percocet 1 tab PO Q6H PRN #60 tablet 11/15/17 Unknown Rx 5/325 mg] Active Meds: Active Medications Acetaminophen (Tylenol) 650 mg PO Q4H PRN PRN Reason: Pain MILD(1-3)/Fever >100.5/PLUMMER Diphenhydramine HCl (Benadryl) 12.5 mg IV Q4H PRN PRN Reason: Itching Last Admin: 01/02/18 08:44 Dose: 12.5 mg Heparin Sodium (Porcine) (Heparin) 5,000 unit SUB-Q Q12HR [facility] Last Admin: 01/01/18 21:30 Dose: 5,000 unit Hydromorphone HCl (Dilaudid) 2 mg IV Q3H PRN PRN Reason: Pain, Moderate (4-6) Stop: 01/02/18 16:57 Last Admin: 01/02/18 08:44 Dose: 2 mg Hydromorphone HCl (Dilaudid) 2 mg IV Q4H PRN PRN Reason: Pain, Moderate (4-6) Dextrose/Sodium Chloride (D5ns) 1,000 mls @ 125 mls/hr IV DIRECT [facility] Last Admin: 01/02/18 07:17 Dose: 125 mls/hr Ondansetron HCl (Zofran) 4 mg IV Q8H PRN PRN Reason: Nausea And Vomiting Sodium Chloride (Sodium Chloride Flush Syringe 10 Ml) 10 ml IV BID [facility] Last Admin: 01/01/18 23:08 Dose: 10 ml Sodium Chloride (Sodium Chloride Flush Syringe 10 Ml) 10 ml IV PRN PRN PRN Reason: LINE FLUSH Review of Systems All systems: negative - Vital Signs Vital signs: Vital Signs Resp 20 01/01/18 16:00 Temp Pulse Resp BP Pulse Ox 98.3 F 79 14 110/51 94 01/02/18 06:24 01/02/18 06:24 01/02/18 06:24 01/02/18 06:24 01/02/18 06:24 - Physical Exam Breasts: Positive: deferred Cardiovascular: Regular rate Lungs: Positive: Clear to auscultation Abdomen: Positive: soft Extremities: Positive: normal Results Result Diagrams: 01/01/18 21:54 01/01/18 21:54 Abnormal lab results 01/01/18 01/01/18 01/01/18 Range/Units 00:25 00:25 18:45 WBC (4.5-11.0) K/mm3 RBC (3.65-5.03) M/mm3 Hgb (10.1-14.3) gm/dl Hct (30.3-42.9) % MCH (28-32) pg MCHC (30-34) % RDW (13.2-15.2) % Seg Neuts % (Manual) (40.0-70.0) % Monocytes % (Manual) (0.0-7.3) % Nucleated RBC % (0.0-0.9) % Seg Neutrophils # Man (1.8-7.7) K/mm3 Monocytes # (Manual) (0.0-0.8) K/mm3 Percent Retic (0.78-2.58) % Potassium (3.6-5.0) mmol/L BUN (7-17) mg/dL Creatinine (0.7-1.2) mg/dL Iron 207 H (37-170) ug/dL TIBC 213 L (250-450) mcg/dL Transferrin 170 L (192-382) mg/dl Total Bilirubin (0.1-1.2) mg/dL Lactate Dehydrogenase 418 H (91-180) units/L Total Protein (6.3-8.2) g/dL Albumin (3.9-5) g/dL HCG, Quant (0-4) mIU/mL Urine HCG, Qual Positive A (Negative) 01/01/18 01/01/18 01/01/18 Range/Units 20:04 21:54 21:54 WBC 14.4 H (4.5-11.0) K/mm3 RBC 2.13 L (3.65-5.03) M/mm3 Hgb 7.4 L (10.1-14.3) gm/dl Hct 20.5 L (30.3-42.9) % MCH 35 H (28-32) pg MCHC 36 H (30-34) % RDW 22.9 H (13.2-15.2) % Seg Neuts % (Manual) 73.0 H (40.0-70.0) % Monocytes % (Manual) 11.0 H (0.0-7.3) % Nucleated RBC % 2.0 H (0.0-0.9) % Seg Neutrophils # Man 10.5 H (1.8-7.7) K/mm3 Monocytes # (Manual) 1.6 H (0.0-0.8) K/mm3 Percent Retic 13.17 H (0.78-2.58) % Potassium 3.3 L (3.6-5.0) mmol/L BUN 5 L (7-17) mg/dL Creatinine 0.2 L (0.7-1.2) mg/dL Iron (37-170) ug/dL TIBC (250-450) mcg/dL Transferrin (192-382) mg/dl Total Bilirubin 3.80 H (0.1-1.2) mg/dL Lactate Dehydrogenase (91-180) units/L Total Protein 6.0 L (6.3-8.2) g/dL Albumin 3.5 L (3.9-5) g/dL HCG, Quant 15843 H (0-4) mIU/mL Urine HCG, Qual (Negative) All other labs normal. Ultrasound: report reviewed, image reviewed Assessment and Plan A: IUP at 13w4d Sickle Cell Disease currently admitted with pain crisis No care P: Pt does not have any obstetric complaints at this time Pain management as indicated with avoidance of NSAIDS vitamin and Folic Acid daily (Pt reports she has these medications) Pt instructed to establish care after discharge. She has been given my contact information so she may follow up with me at [facility] [employer] Thank you kindly for the consult
[2018-01-02] MEDS: SODIUM CHLORIDE FLUSH SYRINGE 10 ML IV SCH ×2 (13:19→22:14)
--- NOTE | 2018-01-02 18:29 | Progress Note ---
Assessment and Plan - Patient Problems (1) Dehydration Current Visit: No Status: Acute Plan to address problem: hydration. (2) Sickle cell anemia with crisis Current Visit: No Status: Acute Plan to address problem: see orders. (3) Positive urine test Current Visit: Yes Status: Acute Plan to address problem: patient knew few days ago but failed to mention it.,and she had been on hydrea all along.Will stop hydroxyurea [place]. remains so. Subjective Date of service: 01/02/18 Interval history: Patient seen/examined, resting in bed, labs reviewed, case d/w patient. hgb7.4, may need blood, given her current condition. Objective - Constitutional General appearance: Present: no acute distress, well-nourished - EENT Eyes: PERRL, EOM intact ENT: hearing intact, clear oral mucosa Ears: bilateral: normal - Neck Neck: supple, normal ROM - Respiratory Respiratory effort: normal Respiratory: bilateral: CTA - Breasts Breasts: deferred - Cardiovascular Rhythm: regular Heart Sounds: Present: S1 & S2. Absent: gallop, rub Extremities: pulses intact, No edema, normal color, Full ROM - Gastrointestinal General gastrointestinal: Present: soft, non-tender, non-distended, normal bowel sounds Rectal Exam: deferred - Genitourinary Female genitourinary: deferred - Integumentary Integumentary: clear, warm, dry - Musculoskeletal Musculoskeletal: 1, strength equal bilaterally - Neurologic Neurologic: moves all extremities - Psychiatric Psychiatric: memory intact, appropriate mood/affect, intact judgment & insight - Labs CBC & Chem 7: 01/01/18 21:54 01/01/18 21:54 Labs: Abnormal lab results 01/01/18 01/01/18 01/01/18 Range/Units 00:25 00:25 18:45 WBC (4.5-11.0) K/mm3 RBC (3.65-5.03) M/mm3 Hgb (10.1-14.3) gm/dl Hct (30.3-42.9) % MCH (28-32) pg MCHC (30-34) % RDW (13.2-15.2) % Seg Neuts % (Manual) (40.0-70.0) % Monocytes % (Manual) (0.0-7.3) % Nucleated RBC % (0.0-0.9) % Seg Neutrophils # Man (1.8-7.7) K/mm3 Monocytes # (Manual) (0.0-0.8) K/mm3 Percent Retic (0.78-2.58) % Potassium (3.6-5.0) mmol/L BUN (7-17) mg/dL Creatinine (0.7-1.2) mg/dL Iron 207 H (37-170) ug/dL TIBC 213 L (250-450) mcg/dL Transferrin 170 L (192-382) mg/dl Total Bilirubin (0.1-1.2) mg/dL Lactate Dehydrogenase 418 H (91-180) units/L Total Protein (6.3-8.2) g/dL Albumin (3.9-5) g/dL HCG, Quant (0-4) mIU/mL Urine HCG, Qual Positive A (Negative) 01/01/18 01/01/18 01/01/18 Range/Units 20:04 21:54 21:54 WBC 14.4 H (4.5-11.0) K/mm3 RBC 2.13 L (3.65-5.03) M/mm3 Hgb 7.4 L (10.1-14.3) gm/dl Hct 20.5 L (30.3-42.9) % MCH 35 H (28-32) pg MCHC 36 H (30-34) % RDW 22.9 H (13.2-15.2) % Seg Neuts % (Manual) 73.0 H (40.0-70.0) % Monocytes % (Manual) 11.0 H (0.0-7.3) % Nucleated RBC % 2.0 H (0.0-0.9) % Seg Neutrophils # Man 10.5 H (1.8-7.7) K/mm3 Monocytes # (Manual) 1.6 H (0.0-0.8) K/mm3 Percent Retic 13.17 H (0.78-2.58) % Potassium 3.3 L (3.6-5.0) mmol/L BUN 5 L (7-17) mg/dL Creatinine 0.2 L (0.7-1.2) mg/dL Iron (37-170) ug/dL TIBC (250-450) mcg/dL Transferrin (192-382) mg/dl Total Bilirubin 3.80 H (0.1-1.2) mg/dL Lactate Dehydrogenase (91-180) units/L Total Protein 6.0 L (6.3-8.2) g/dL Albumin 3.5 L (3.9-5) g/dL HCG, Quant 17734 H (0-4) mIU/mL Urine HCG, Qual (Negative)
[2018-01-02] MEDS ORDERED: K-DUR PO ONE (20:00)
[2018-01-02 21:00] LABS: Hematocrit 20.2 % (30.3-42.9); Hemoglobin 7.3 gm/dl (10.1-14.3); Mean Corpuscular HGB Conc 36 % (30-34); Mean Corpuscular Hemoglobin 35 pg (28-32); Mean Corpuscular Volume 97 fl (79-97); Platelet Count 422 K/mm3 (140-440); Red Blood Count 2.08 M/mm3 (3.65-5.03)
[2018-01-02 21:10] LABS: Red Cell Distribution Width 25.2 % (13.2-15.2)
[2018-01-02 22:11] LABS: Anisocytosis 1+; Basophils % (Manual) 0 % (0.0-1.8); Total Cells Counted 100
[2018-01-02 22:12] LABS: Sickle Cells 1+; Target Cells Few
[2018-01-02 22:13] LABS: Platelet Estimate Consistent w Auto
[2018-01-03] MEDS: DILAUDID IV PRN ×2 (03:09→07:43)
[2018-01-03] MEDS: BENADRYL IV PRN ×3 (03:10→12:55)
[2018-01-03] MEDS: D5NS 1,000 ML IV SCH (03:11)
--- NOTE | 2018-01-03 07:48 | Discharge Summary ---
Providers - Providers Date of Admission: 01/01/18 15:38 Date of discharge: 01/03/18 Attending physician: GLENNA EASLEY 01/01/18 16:25 Consult to Physician [CONS] Routine Comment: Consulting Provider: ARCADIO RICH Physician Instructions: Reason For Exam: SICKLE CELL CRISIS 01/01/18 21:48 Consult to Physician [CONS] Routine Comment: Consulting Provider: DAVIN ROUSSEAU Physician Instructions: Reason For Exam: Primary care physician: ARCADIO RICH Hospitalization Reason for admission: sickle cell pain crisis Hospital course: 22-year-old black female with history of sickle cell anemia and crisis comes in for severe pain all over for 2-3 days prior to admission. The patient was seen by hematology consultation. Patient received IV fluid hydration, pain control and supportive care. Patient was also noted to have a test that was positive. The was confirmed on his hospitalization. Patient was seen by [facility] ADMISS[facility]. Patient will have further follow-up as an outpatient. Once the was learned, hydroxyurea was stopped immediately. Patient is to follow-up as an outpatient. Dedicated discharge time 32 minutes. Disposition: DC-01 TO HOME OR SELFCARE Time spent for discharge: 32 - Discharge Diagnoses (1) Positive urine test Status: Acute (2) Dehydration Status: Acute (3) Sickle cell pain crisis Status: Acute Core Measure Documentation - Palliative Care Palliative Care/ Comfort Measures: Not Applicable - Core Measures Any of the following diagnoses?: none Exam - Constitutional Vitals: Temp Pulse Resp BP Pulse Ox 98.6 F 81 16 112/61 95 01/03/18 05:37 01/03/18 05:37 01/03/18 05:37 01/03/18 05:37 01/03/18 05:37 General appearance: Present: no acute distress, well-nourished - EENT Eyes: Present: PERRL ENT: hearing intact, clear oral mucosa - Neck Neck: Present: supple, normal ROM - Respiratory Respiratory effort: normal Respiratory: bilateral: CTA - Cardiovascular Heart Sounds: Present: S1 & S2. Absent: rub, click - Extremities Extremities: pulses symmetrical, No edema Peripheral Pulses: within normal limits - Abdominal General gastrointestinal: Present: soft, non-tender, non-distended, normal bowel sounds Female genitourinary: Present: normal - Integumentary Integumentary: Present: clear, warm, dry - Musculoskeletal Musculoskeletal: gait normal, strength equal bilaterally - Psychiatric Psychiatric: appropriate mood/affect, intact judgment & insight - Neurologic Neurologic: CNII-XII intact, moves all extremities Plan Activity: no restrictions Weight Bearing Status: Full Weight Bearing Diet: regular Follow up with: ARCADIO RICH DO [Primary Care Provider] - 7 Days DAVIN ROUSSEAU MD [Staff Physician] - 7 Days Prescriptions: Folic Acid [Folvite] 1 mg PO QDAY #30 tablet Multivitamin Tab [Multiple Vitamin TAB (Theragran)] 1 each PO QDAY #30 tablet
[2018-01-03 08:05] LABS: BUN/Creatinine Ratio 15; Blood Urea Nitrogen 3 mg/dL (7-17); Calcium 8.1 mg/dL (8.4-10.2); Hemolysis Index 83
[2018-01-03] MEDS ORDERED: DILAUDID IV PRN (09:54)
[2018-01-03] MEDS: HEPARIN SUB-Q SCH (10:28)
[2018-01-03] MEDS: SODIUM CHLORIDE FLUSH SYRINGE 10 ML IV SCH (10:28)
--- NOTE | 2018-01-03 11:28 | Progress Note ---
Assessment and Plan - Patient Problems (1) Dehydration Current Visit: No Status: Acute Plan to address problem: hydration. (2) Sickle cell anemia with crisis Current Visit: No Status: Acute Plan to address problem: see orders. (3) Positive urine test Current Visit: Yes Status: Acute Plan to address problem: patient knew few days ago but failed to mention it.,and she had been on hydrea all along.Will stop hydroxyurea [place]. remains so. Subjective Date of service: 01/03/18 Interval history: Patient seen/examined, resting in bed, labs reviewed, case d/w patient. hgb7.4, may need blood, given her current condition. Objective - Constitutional Vitals: Vital Signs - 12hr 01/03/18 01/03/18 01/03/18 03:09 03:39 05:37 Temperature 98.6 F Pulse Rate 81 Respiratory 20 20 16 Rate Blood Pressure 112/61 O2 Sat by Pulse 95 Oximetry 01/03/18 10:00 Temperature Pulse Rate Respiratory Rate Blood Pressure O2 Sat by Pulse 97 Oximetry General appearance: Present: mild distress - EENT Eyes: PERRL, EOM intact ENT: hearing intact, clear oral mucosa Ears: bilateral: normal - Neck Neck: supple, normal ROM - Respiratory Respiratory effort: normal Respiratory: bilateral: CTA - Breasts Breasts: deferred - Cardiovascular Rhythm: regular Heart Sounds: Present: S1 & S2. Absent: gallop, rub Extremities: pulses intact, No edema, normal color, Full ROM - Gastrointestinal General gastrointestinal: Present: soft, non-tender, non-distended, normal bowel sounds Rectal Exam: deferred - Genitourinary Female genitourinary: deferred - Integumentary Integumentary: clear, warm, dry - Musculoskeletal Musculoskeletal: 1, strength equal bilaterally - Neurologic Neurologic: moves all extremities - Psychiatric Psychiatric: memory intact, appropriate mood/affect, intact judgment & insight - Labs CBC & Chem 7: 01/02/18 20:37 01/03/18 07:28 Labs: Abnormal lab results 01/02/18 01/03/18 Range/Units 20:37 07:28 WBC 12.4 H (4.5-11.0) K/mm3 RBC 2.08 L (3.65-5.03) M/mm3 Hgb 7.3 L (10.1-14.3) gm/dl Hct 20.2 L (30.3-42.9) % MCH 35 H (28-32) pg MCHC 36 H (30-34) % RDW 25.2 H (13.2-15.2) % Seg Neuts % (Manual) 72.0 H (40.0-70.0) % Monocytes % (Manual) 9.0 H (0.0-7.3) % Nucleated RBC % 2.0 H (0.0-0.9) % Seg Neutrophils # Man 8.9 H (1.8-7.7) K/mm3 Monocytes # (Manual) 1.1 H (0.0-0.8) K/mm3 Carbon Dioxide 19 L (22-30) mmol/L BUN 3 L (7-17) mg/dL Creatinine < 0.2 L (0.7-1.2) mg/dL Calcium 8.1 L (8.4-10.2) mg/dL
[2018-01-03 12:55] VITALS: BP 121/54
[2018-01-03 13:21] LABS: Hematocrit 25.8 % (30.3-42.9); Hemoglobin 8.5 gm/dl (10.1-14.3); Mean Corpuscular HGB Conc 33 % (30-34); Mean Corpuscular Hemoglobin 34 pg (28-32); Mean Corpuscular Volume 103 fl (79-97); Platelet Count 312 K/mm3 (140-440)
[2018-01-03 13:22] LABS: Red Cell Distribution Width 25.4 % (13.2-15.2)
[2018-01-03 14:47] LABS: Anisocytosis 1+; Band Neutrophils # (Manual) 0.1 K/mm3; Basophils % (Manual) 0 % (0.0-1.8); Poikilocytosis 2+; Sickle Cells 1+; Total Cells Counted 100
[2018-01-03 14:48] LABS: Acanthocytes Few; Ovalocytes 1+; Target Cells Few
[2018-01-03 14:49] LABS: Platelet Estimate Cons
== END 2018-01-03 16:00 | disposition home or self-care (01) | DRG 781 ==
LOC: 3A 14:34 → UNDOADMIN 14:34 → 3A 15:38
PROVIDERS: ADMIT Internal Medicine; ATTEND Hospitalist
DX: O99.011 Anemia complicating pregnancy, first trimester (principal); D57.00 Hb-SS disease with crisis, unspecified; O26.891 Other specified pregnancy related conditions, first trimester; E86.0 Dehydration; Z82.49 Family history of ischemic heart disease and other diseases of the circulatory system; Z3A.13 13 weeks gestation of pregnancy; Z90.49 Acquired absence of other specified parts of digestive tract
CPT/HCPCS: 36415; 76801; 80048; 80053; 81025; 83550; 83615; 84702; 85007; 85025; 85045; 87116; J1170; J1200; J1644; J7042

== ENCOUNTER 2018-08-14 13:42 | Inpatient (IN) | payer MEDICAID ==
[2018-08-14] MEDS ORDERED: PERCOCET 5/325 PO PRN (14:37)
[2018-08-14] MEDS ORDERED: SODIUM CHLORIDE FLUSH SYRINGE 10 ML IV PRN (14:37)
[2018-08-14 16:02] LABS: Basophils # (Auto) 0.2 K/mm3 (0.0-0.1); Basophils % (Auto) 1.4 % (0.0-1.8); Eosinophils # (Auto) 0.2 K/mm3 (0.0-0.4); Eosinophils % (Auto) 0.9 % (0.0-4.3); Hematocrit 22.4 % (30.3-42.9); Hemoglobin 7.9 gm/dl (10.1-14.3); Lymphocytes # (Auto) 2.2 K/mm3 (1.2-5.4); Lymphocytes % (Auto) 13.3 % (13.4-35.0); Mean Corpuscular HGB Conc 35 % (30-34); Mean Corpuscular Volume 97 fl (79-97); Monocytes % (Auto) 12.2 % (0.0-7.3); Platelet Count 568 K/mm3 (140-440); Red Blood Count 2.31 M/mm3 (3.65-5.03)
[2018-08-14 16:04] LABS: Red Cell Distribution Width 22.5 % (13.2-15.2)
[2018-08-14] MEDS: BENADRYL IV PRN ×2 (16:48→23:03)
[2018-08-14] MEDS: DILAUDID IV PRN ×3 (16:48→23:03)
[2018-08-14] MEDS: FOLVITE PO SCH (16:48)
[2018-08-14 16:55] LABS: Alanine Aminotransferase 11 units/L (7-56); BUN/Creatinine Ratio 25; Blood Urea Nitrogen 5 mg/dL (7-17); Calcium 8.9 mg/dL (8.4-10.2); Hemolysis Index 17
[2018-08-14] MEDS: D5NS 0.2% 1,000 ML IV SCH ×2 (16:55→22:04)
--- NOTE | 2018-08-14 20:08 | History and Physical Report ---
History of Present Illness Date of examination: 08/14/18 Date of admission: 08/14/18 14:53 Chief complaint: Sickle pain crisis. History of present illness: Patient presented to the office with CC of Pain crisis, unable to control her pain at home. She had rated her pain as 10/10. She was examined, and admitted to the hospital for sxsx management , and control. She will get labs, hydration, pain control, and once stable, she will be d/chandler home. Past History Past Medical History: anemia Social history: , lives with family Medications and Allergies Allergies Allergy/AdvReac Type Severity Reaction Status Date / Time No Known Allergies Allergy Verified 01/11/17 09:47 Home Medications Medication Instructions Recorded Confirmed Last Taken Type Sennosides Tab [Senokot] 17.2 mg PO QHS #30 tablet 11/15/17 01/02/18 Unknown Rx Folic Acid [Folvite] 1 mg PO QDAY #30 tablet 01/03/18 Unknown Rx Multivitamin Tab [Multiple Vitamin 1 each PO QDAY #30 tablet 01/03/18 Unknown Rx TAB (Theragran)] Active Meds: Active Medications Diphenhydramine HCl (Benadryl) 25 mg IV Q6H PRN PRN Reason: Itching Last Admin: 08/14/18 16:48 Dose: 25 mg Documented by: Folic Acid (Folvite) 1 mg PO QDAY [facility] Last Admin: 08/14/18 16:48 Dose: 1 mg Documented by: Heparin Sodium (Porcine) (Heparin) 5,000 unit SUB-Q Q8HR [facility] Hydromorphone HCl (Dilaudid) 3 mg IV Q3H PRN PRN Reason: Pain , Severe (7-10) Last Admin: 08/14/18 20:02 Dose: 3 mg Documented by: Hydroxyurea (Hydrea) 500 mg PO BID [facility] Dextrose/Sodium Chloride (D5ns 0.2%) 1,000 mls @ 250 mls/hr IV DIRECT [facility] Last Admin: 08/14/18 16:55 Dose: 250 mls/hr Documented by: Oxycodone/Acetaminophen (Percocet 5/325) 2 tab PO Q6H PRN PRN Reason: Pain, Moderate (4-6) Senna (Senokot) 17.2 mg PO QHS [facility] Sodium Chloride (Sodium Chloride Flush Syringe 10 Ml) 10 ml IV BID [facility] Sodium Chloride (Sodium Chloride Flush Syringe 10 Ml) 10 ml IV PRN PRN PRN Reason: LINE FLUSH Review of Systems Constitutional: chronic pain Breasts: deferred Musculoskeletal: low back pain Exam - Constitutional Vitals: Temp Pulse Resp BP Pulse Ox 98.2 F 76 19 126/66 99 08/14/18 15:56 08/14/18 15:56 08/14/18 15:56 08/14/18 15:56 08/14/18 15:56 General appearance: Present: mild distress, well-nourished - EENT Eyes: Present: PERRL ENT: hearing intact, clear oral mucosa - Neck Neck: Present: supple, normal ROM - Respiratory Respiratory effort: normal Respiratory: bilateral: CTA - Cardiovascular Heart Sounds: Present: S1 & S2. Absent: rub, click - Extremities Extremities: pulses symmetrical, No edema Peripheral Pulses: within normal limits - Abdominal General gastrointestinal: Present: soft, non-tender, non-distended, normal bowel sounds Female genitourinary: Present: deferred - Rectal Rectal Exam: deferred - Integumentary Integumentary: Present: clear, warm, dry - Musculoskeletal Musculoskeletal: gait normal, strength equal bilaterally - Psychiatric Psychiatric: appropriate mood/affect, intact judgment & insight - Neurologic Neurologic: CNII-XII intact, moves all extremities Results - Labs CBC & Chem 7: 08/14/18 15:20 08/14/18 15:20 Labs: Abnormal lab results 08/14/18 08/14/18 Range/Units 15:20 15:20 WBC 16.3 H (4.5-11.0) K/mm3 RBC 2.31 L (3.65-5.03) M/mm3 Hgb 7.9 L (10.1-14.3) gm/dl Hct 22.4 L (30.3-42.9) % MCH 34 H (28-32) pg MCHC 35 H (30-34) % RDW 22.5 H (13.2-15.2) % Plt Count 568 H (140-440) K/mm3 Lymph % (Auto) 13.3 L (13.4-35.0) % [place] % (Auto) 12.2 H (0.0-7.3) % [place] # 2.0 H (0.0-0.8) K/mm3 Baso # 0.2 H (0.0-0.1) K/mm3 Seg Neutrophils % 72.2 H (40.0-70.0) % Seg Neutrophils # 11.8 H (1.8-7.7) K/mm3 Percent Retic 11.02 H (0.78-2.58) % Chloride 108.4 H (98-107) mmol/L BUN 5 L (7-17) mg/dL Creatinine 0.2 L (0.7-1.2) mg/dL Total Bilirubin 4.10 H (0.1-1.2) mg/dL Assessment and Plan - Patient Problems (1) Dehydration Current Visit: No Status: Acute Plan to address problem: Hydration (2) Sickle cell anemia with pain Current Visit: Yes Status: Acute Plan to address problem: monitor/correct labs, pain control.
[2018-08-14] MEDS ORDERED: SENOKOT PO SCH (22:00)
[2018-08-14] MEDS: HYDREA PO SCH (22:04)
[2018-08-14] MEDS: HEPARIN SUB-Q SCH (22:08)
[2018-08-14] MEDS: SODIUM CHLORIDE FLUSH SYRINGE 10 ML IV SCH (22:08)
[2018-08-15] MEDS: DILAUDID IV PRN ×7 (02:05→20:44)
[2018-08-15] MEDS: BENADRYL IV PRN ×3 (05:13→17:44)
[2018-08-15] MEDS: D5NS 0.2% 1,000 ML IV SCH ×2 (05:14→17:49)
[2018-08-15] MEDS: HEPARIN SUB-Q SCH ×3 (06:27→19:28)
[2018-08-15 09:01] LABS: Bacteria,Urine 2+ /HPF (Negative); Bilirubin,Urine NEG (Negative); Blood,Urine SM (Negative); Color,Urine Yellow (Yellow)
[2018-08-15] MEDS: HYDREA PO SCH (11:24)
[2018-08-15] MEDS: FOLVITE PO SCH (11:24)
[2018-08-15] MEDS: SODIUM CHLORIDE FLUSH SYRINGE 10 ML IV SCH (11:25)
[2018-08-15 16:50] VITALS: BP 123/62
--- NOTE | 2018-08-15 19:17 | Discharge Summary ---
Providers - Providers Date of Admission: 08/14/18 14:53 Date of discharge: 08/15/18 Attending physician: ARCADIO RICH Primary care physician: ARCADIO RICH Hospitalization Reason for admission: SCD/pain crisis/anemia. Condition: Stable Hospital course: patient seen/examined, resting in bed, VSS.She had presented to the office with diffuse pain, worked up, and admitted to the hospital, for sxs management. She was hydrated, treated with IV /oral pain meds accordingly. she tolerated txs fairly well. She will be d/chandler, and will be picked up later on by the family. She will continue care until then. Disposition: DC-01 TO HOME OR SELFCARE - Discharge Diagnoses (1) Dehydration Status: Resolved (2) Sickle cell anemia with pain Status: Chronic Core Measure Documentation - Palliative Care Palliative Care/ Comfort Measures: Not Applicable - Core Measures Any of the following diagnoses?: none Exam - Constitutional Vitals: Temp Pulse Resp BP Pulse Ox 98 F 83 14 123/62 95 08/15/18 16:49 08/15/18 16:49 08/15/18 16:49 08/15/18 16:49 08/15/18 16:49 General appearance: Present: no acute distress, well-nourished - EENT Eyes: Present: PERRL ENT: hearing intact, clear oral mucosa - Neck Neck: Present: supple, normal ROM - Respiratory Respiratory effort: normal Respiratory: bilateral: CTA - Cardiovascular Heart Sounds: Present: S1 & S2. Absent: rub, click - Extremities Extremities: pulses symmetrical, No edema Peripheral Pulses: within normal limits - Abdominal General gastrointestinal: Present: soft, non-tender, non-distended, normal bowel sounds Female genitourinary: Present: deferred - Rectal Rectal Exam: deferred - Integumentary Integumentary: Present: clear, warm, dry - Musculoskeletal Musculoskeletal: gait normal, strength equal bilaterally - Psychiatric Psychiatric: appropriate mood/affect, intact judgment & insight - Neurologic Neurologic: CNII-XII intact, moves all extremities Plan Activity: no restrictions Diet: regular Follow up with: ARCADIO RICH DO [Primary Care Provider] - 7 Days
== END 2018-08-15 21:57 | disposition home or self-care (01) | DRG 812 ==
LOC: UNDOADMIN 13:42 → 3A 13:42
PROVIDERS: ADMIT Internal Medicine Hematology & Oncology; ATTEND Internal Medicine Hematology & Oncology
DX: D57.00 Hb-SS disease with crisis, unspecified (principal); E86.0 Dehydration; Z79.899 Other long term (current) drug therapy
CPT/HCPCS: 36415; 80053; 81001; 85025; 85045; 87040; 87086; 87116; G0378; J1170; J1200; J1644

== ENCOUNTER 2019-07-12 08:30 | Emergency (ER) | payer MEDICAID ==
[2019-07-12 08:45] VITALS: BP 132/77
[2019-07-12 10:14] LABS: Bacteria,Urine 1+ /HPF (Negative); Bilirubin,Urine NEG (Negative); Blood,Urine MOD (Negative); Color,Urine Yellow (Yellow)
[2019-07-12 10:32] LABS: Hematocrit 23.1 % (30.3-42.9); Hemoglobin 8.5 gm/dl (10.1-14.3); Mean Corpuscular HGB Conc 37 % (30-34); Mean Corpuscular Volume 98 fl (79-97); Platelet Count 440 K/mm3 (140-440); Red Blood Count 2.36 M/mm3 (3.65-5.03)
[2019-07-12 10:38] LABS: Red Cell Distribution Width 27.6 % (13.2-15.2)
[2019-07-12 10:43] LABS: Albumin 4.2 g/dL (3.9-5); BUN/Creatinine Ratio 25; Blood Urea Nitrogen 5 mg/dL (7-17); Calcium 9.2 mg/dL (8.4-10.2); Hemolysis Index 127
[2019-07-12 10:53] LABS: Alanine Aminotransferase 15 units/L (7-56)
[2019-07-12 12:16] LABS: Basophils % (Manual) 0 % (0.0-1.8); Eosinophils % (Manual) 0 % (0.0-4.3); Giant Platelets Few; Platelet Estimate Consistent w Auto; Sickle Cells 2+; Target Cells 2+; Total Cells Counted 100
== END 2019-07-12 09:30 | disposition left against medical advice (07) ==
LOC: ED 08:30
DX: D57.1 Sickle-cell disease without crisis (principal); Z53.21 Procedure and treatment not carried out due to patient leaving prior to being seen by health care provider
CPT/HCPCS: 36415; 80053; 81001; 85007; 85025; 85045

== ENCOUNTER 2019-08-21 09:58 | Emergency (ER) | payer MEDICAID ==
[2019-08-21 11:05] LABS: Basophils # (Auto) 0.1 K/mm3 (0.0-0.1); Basophils % (Auto) 1.2 % (0.0-1.8); Eosinophils % (Auto) 0.4 % (0.0-4.3); Hematocrit 27.5 % (30.3-42.9); Hemoglobin 9.8 gm/dl (10.1-14.3); Lymphocytes # (Auto) 1.3 K/mm3 (1.2-5.4); Mean Corpuscular HGB Conc 36 % (30-34); Mean Corpuscular Volume 94 fl (79-97); Monocytes % (Auto) 12.4 % (0.0-7.3); Platelet Count 500 K/mm3 (140-440); Red Blood Count 2.94 M/mm3 (3.65-5.03); Red Cell Distribution Width 19.7 % (13.2-15.2)
[2019-08-21 11:21] LABS: BUN/Creatinine Ratio 25; Blood Urea Nitrogen 5 mg/dL (7-17); Calcium 9.1 mg/dL (8.4-10.2); Hemolysis Index 16
[2019-08-21] MEDS ORDERED: SODIUM CHLORIDE 0.9% 1000 ML 1,000 ML IV ONE (11:29)
[2019-08-21] MEDS ORDERED: HYDROmorphone 2 MG/1 ML INJ IV ONE ×2 (12:46→13:45)
[2019-08-21] MEDS ORDERED: diphenhydrAMINE 50 MG/ML VIAL IV ONE (12:46)
[2019-08-21] MEDS ORDERED: KETOROLAC 30 MG/1 ML INJ IV ONE (13:45)
--- NOTE | 2019-08-21 14:19 | Emergency Department Report ---
HPI - General Chief Complaint: Sickle Cell Crisis Time Seen by Provider: 08/21/19 12:40 - HPI HPI: 24-year-old -[place] female presents to the emergency department with a complaint of some back pain and bilateral upper extremity pain that she believes is due to a sickle cell pain crisis. The patient follows with Dr. Rich for hematology. She has been taking her hydroxyurea, folic acid, and the [place] prescription monitoring shows that the patient has a prescription of Percocet available to her. She denies any fever, chest pain, shortness of breath, lower extremity swelling. No recent travel or sick contacts at home. ED Past Medical Hx - Past Medical History Hx Heart Attack/AMI: No Hx Congestive Heart Failure: No Hx Diabetes: No Hx Sickle Cell Disease: Yes Hx Asthma: No Hx COPD: No Hx HIV: No - Surgical History Hx Cholecystectomy: Yes (2012) - Social History Smoking Status: Never Smoker Substance Use Type: Marijuana - Medications Home Medications: Home Medications Medication Instructions Recorded Confirmed Last Taken Type Sennosides Tab [Senokot] 17.2 mg PO QHS #30 tablet 11/15/17 01/02/18 Unknown Rx Folic Acid [Folvite] 1 mg PO QDAY #30 tablet 01/03/18 Unknown Rx Multivitamin Tab [Multiple Vitamin 1 each PO QDAY #30 tablet 01/03/18 Unknown R x TAB (Theragran)] ED Review of Systems ROS: Stated complaint: SICKLE CELL CRISIS Other details as noted in HPI Comment: All other systems reviewed and negative Constitutional: denies: chills, fever Eyes: denies: eye pain, vision change ENT: denies: ear pain, throat pain Respiratory: denies: cough, shortness of breath Cardiovascular: denies: chest pain, palpitations Gastrointestinal: denies: abdominal pain, vomiting Genitourinary: denies: dysuria, discharge Musculoskeletal: back pain, arthralgia, myalgia. denies: joint swelling Skin: denies: rash, lesions Neurological: denies: headache, weakness, numbness Physical Exam - Physical Exam Vital Signs: Vital Signs 08/21/19 08/21/19 08/21/19 10:10 10:14 12:45 Temperature 96.9 F L 98.9 F Pulse Rate 88 88 Respiratory 18 18 17 Rate Blood Pressure 122/75 Blood Pressure 122/75 [Right] O2 Sat by Pulse 95 95 Oximetry 03/26/20 13:15 Temperature Pulse Rate 66 Respiratory 18 Rate Blood Pressure Blood Pressure 136/85 [Right] O2 Sat by Pulse 98 Oximetry Physical Exam: GENERAL: The patient is well-developed well-nourished. HENT: Normocephalic. Atraumatic. Patient has moist mucous membranes. EYES: Extraocular motions are intact. NECK: Supple. Trachea is midline. CHEST/LUNGS: Clear to auscultation. There is no respiratory distress noted. HEART/CARDIOVASCULAR: Regular. There is no tachycardia. ABDOMEN: Abdomen is soft, nontender. Patient has normal bowel sounds. SKIN: Skin is warm and dry. NEURO: The patient is awake, alert, and oriented. The patient is cooperative. The patient has no focal neurologic deficits. Normal speech. MUSCULOSKELETAL: There is no tenderness or deformity. There is no limitation range of motion. There is no evidence of acute injury. BACK: No midline thoracic or lumbar tenderness to palpation, step-off or defor mity. There is some reproducible thoracic bilateral paraspinal tenderness to palpation. ED Course Vital Signs 08/21/19 08/21/19 08/21/19 10:10 10:14 12:45 Temperature 96.9 F L 98.9 F Pulse Rate 88 88 Respiratory 18 18 17 Rate Blood Pressure 122/75 Blood Pressure 122/75 [Right] O2 Sat by Pulse 95 95 Oximetry 08/21/19 13:15 Temperature Pulse Rate 66 Respiratory 18 Rate Blood Pressure Blood Pressure 136/85 [Right] O2 Sat by Pulse 98 Oximetry ED Medical Decision Making - Lab Data Result diagrams: 08/21/19 10:42 08/21/19 10:42 - Medical Decision Making This patient presents to the emergency department with a complaint of some back pain and arm pain consistent with previous sickle cell pain crisis. Vital signs are unremarkable including being afebrile. Patient's labs show hemoglobin of 9.8, reticulocyte count of about 9. These values are consistent, if not improved from, previous visits. The rest of the labs are mostly unremarkable. Patient was given IV fluid resuscitation and multiple doses of IV analgesia. Upon reevaluation, the patient is improved and in no acute distress. She is seen resting comfortably. She has good outpatient follow-up with Dr. Rich. She will follow-up with the television agent and will return to the emergency department with any worsening of her symptoms or any acute distress. - Differential Diagnosis Sickle cell pain crisis, fibromyalgia, lupus Critical Care Time: No Critical care attestation.: If time is entered above; I have spent that time in minutes in the direct care of this critically ill patient, excluding procedure time. ED Disposition Clinical Impression: Sickle cell pain crisis Disposition: DC- TO HOME OR SELFCARE Is pt being admited?: No Condition: Stable Instructions: Sickle Cell Crisis (ED), Anemia (ED) Additional Instructions: Please follow-up with your primary care physician and/or television agent in the next few days. Return to the emergency department with any worsening of your symptoms or any acute distress. Referrals: ARCADIO RICH DO [Staff Physician] - 2-3 Days Time of Disposition: 14:45
[2019-08-21] MEDS ORDERED: HYDROmorphone 1 MG/1 ML INJ IV ONE (14:21)
[2019-08-21 15:18] VITALS: BP 116/56
== END 2019-08-21 15:18 | disposition home or self-care (01) ==
LOC: ED 09:58
DX: D57.00 Hb-SS disease with crisis, unspecified (principal); F12.10 Cannabis abuse, uncomplicated
CPT/HCPCS: 36415; 80048; 85025; 85045; 96374; 96375; 96376; 99283; J1170; J1200; J1885; J7030